=== PATIENT | female | born 1970 | race Caucasian/White ===

== ENCOUNTER 2017-05-07 18:17 | Inpatient (IN) | payer MEDICARE, MEDICAID ==
[2017-05-07 18:59] VITALS: BMI 31.9
[2017-05-07] MEDS ORDERED: MAG HYDROX/AL HYDROX/SIMETH 30 ML CUP PO PRN (19:10)
[2017-05-07] MEDS ORDERED: MAGNESIUM HYDROXIDE 2,400 MG/10 ML CUP PO PRN (19:10)
[2017-05-07] MEDS: GABAPENTIN 400 MG CAP PO SCH (21:49)
[2017-05-07] MEDS: NICOTINE 14MG/24HR PATCH TRANSDERM SCH (21:49)
[2017-05-07] MEDS: cloNIDine HCL 0.1 MG TAB PO SCH (21:49)
[2017-05-08] MEDS: NICOTINE 14MG/24HR PATCH TRANSDERM SCH (09:04)
[2017-05-08] MEDS: cloNIDine HCL 0.1 MG TAB PO SCH ×2 (09:04→20:46)
[2017-05-08] MEDS: GABAPENTIN 400 MG CAP PO SCH ×3 (09:04→20:46)
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
[2017-05-08] MEDS: DULoxetine HCL 30 MG CAPSULE.DR PO SCH (12:29)
[2017-05-08] MEDS ORDERED: ALBUTEROL INHALER 60 PUFF/8 GM INHALER INHALATION PRN (13:18)
[2017-05-08] MEDS ORDERED: MINERAL OIL-WHITE PETROLATUM 120 GM JAR TOPICAL PRN (13:32)
--- NOTE | 2017-05-08 18:08 | CONS ---
CONSULTATION REASON FOR CONSULTATION: Advice regarding hypertension and other multiple medical issues, requested by Psychiatry. HISTORY OF PRESENT ILLNESS: This 46-year-old woman with a past history of hypertension, syndrome, cholecystectomy, history of nicotine dependence, being followed by Dr. Aguilar in the outpatient setting, was admitted for psychiatric evaluation. There is no history of fevers or rigors. No history of headache or loss of consciousness. Patient complains of cough. The patient apparently has COPD, not taking bronchodilators at home. PAST MEDICAL HISTORY: History of COPD, hypertension, syndrome, cholecystectomy, nicotine dependence, history of THC. MEDICATIONS: 1. Ambien 5 mg p.o. at bedtime. 2. Norvasc 5 mg p.o. daily. 3. Catapres 0.1 p.o. b.i.d. 4. Zanaflex 4 mg p.o. daily. 5. Gabapentin 10 mg t.i.d. ALLERGIES: PENICILLIN. FAMILY HISTORY: History of coronary artery disease and bipolar in the family. SOCIAL HISTORY: History of smoking, THC. REVIEW OF SYSTEMS: ENT: No diminished hearing or vision. CARDIOVASCULAR: No angina or palpitations. RESPIRATORY: As mentioned earlier. GI: No nausea. : No dysuria. NERVOUS SYSTEM: No numbness or weakness. ALLERGY: No asthma or hayfever. MUSCULOSKELETAL: As mentioned earlier. DERMATOLOGY: As mentioned. ENDOCRINE: No anemia. No history of diabetes or hypothyroidism. CONSTITUTIONAL: As mentioned. RHEUMATOLOGY: As mentioned. PSYCHIATRY: As mentioned. PHYSICAL EXAM: Alert, oriented x3. Pulse 54, blood pressure 140/97, respirations 18, temperature 97.8, pulse ox normal. HEENT: Conjunctivae normal. Oral mucosa moist. NECK: No jugular venous distention. No lymph node enlargement. CARDIOVASCULAR: S1 and S2. LUNGS: Breath sounds diminished in the bases. Few rhonchi and crackles. Expiratory wheezing also. ABDOMEN: Soft, nontender. LEGS: No edema. NERVOUS SYSTEM: Higher functions as mentioned earlier. Moves all 4 limbs. LYMPHATICS: No lymph nodes palpable in the neck, axillae or groin. SKIN: No ulcer, rash or bleeding. Bilateral hand eczema. LABS: WBC 3.4. ASSESSMENT: 1. Chronic obstructive pulmonary disease. 2. History of nicotine dependence. 3. Major depression. 4. Degenerative joint disease and back pain. 5. Bilateral hand eczema. 6. History of syndrome. 7. History of hypertension. 8. History of cholecystectomy. 9. History of THC. 10.History of nicotine dependence. RECOMMENDATIONS AND DISCUSSION: In this 46-year-old woman who presented with multiple complex medical issues, will monitor the patient closely. Continue the current management. I recommend resume home medications. Smoking cessation advised. Otherwise would also recommend followup closely and a course of bronchodilators. Will follow the patient closely. The patient may be asked to follow up with primary physician closely. Thank you for asking us to participate in the care of this patient. MMODL / IJN: [id number] / MTDD
[2017-05-08] MEDS: ALBUTEROL INHALER 60 PUFF/8 GM INHALER INHALATION SCH (21:06)
[2017-05-09] MEDS: ALBUTEROL INHALER 60 PUFF/8 GM INHALER INHALATION SCH ×3 (08:13→20:47)
[2017-05-09] MEDS: amLODIPine 5 MG TAB PO SCH (08:50)
[2017-05-09] MEDS: cloNIDine HCL 0.1 MG TAB PO SCH ×2 (08:50→21:05)
[2017-05-09] MEDS: GABAPENTIN 400 MG CAP PO SCH ×3 (08:50→21:05)
[2017-05-09] MEDS: NICOTINE 14MG/24HR PATCH TRANSDERM SCH (08:50)
[2017-05-09] MEDS: DULoxetine HCL 30 MG CAPSULE.DR PO SCH (08:50)
--- NOTE | 2017-05-09 09:49 | P.PN ---
Progress Note - Text Interval history: The patient is found at the front office representative she follows me to an interview room. She reports that her anxiety seemed to decrease as soon as she started the Cymbalta. She continues to process feelings of shame and guilt regarding her suicide attempt but especially with her children in the home. She reports she is attending group. She has no questions or concerns regarding her medication. Appetite is reported as stable. She states sleep was interrupted due to disturbances on the mental health unit last evening. Mental status exam: The patient is alert she seated calmly she is dressed in her own clothing hygiene grooming adequate. Eye contact is appropriate speech is fluent spontaneous nonpressured. She endorses a continued depressed mood with anxiety she still harbor some hopelessness thinking but in terms of suicidal ideation she feels safe here in the hospital. She is reporting no homicidal ideation. There is no report or evidence of auditory or visual hallucinations or specific delusions. She does not appear hypomanic or manic. Insight and judgment beginning to improve. She demonstrates no verbal or physical aggressiveness she demonstrates no abnormal involuntary movements. Plan: The patient will continue on the Cymbalta we will titrate the dose to 60 mg tomorrow. We will continue to monitor her for safety and encourage her participation in the milieu.
[2017-05-09] MEDS: TRIAMCINOLONE 0.1% CREAM 80 GM TUBE TOPICAL SCH ×2 (12:14→21:08)
[2017-05-09] MEDS: ACETAMINOPHEN TAB 325 MG TAB PO PRN ×2 (16:34→21:05)
[2017-05-09] MEDS ORDERED: MELATONIN 3 MG TABLET PO STA (23:51)
[2017-05-10] MEDS: TRIAMCINOLONE 0.1% CREAM 80 GM TUBE TOPICAL SCH ×2 (08:34→20:52)
[2017-05-10] MEDS: cloNIDine HCL 0.1 MG TAB PO SCH ×2 (08:34→20:51)
[2017-05-10] MEDS: DULoxetine HCL 60 MG CAPSULE.DR PO SCH (08:34)
[2017-05-10] MEDS: GABAPENTIN 400 MG CAP PO SCH ×3 (08:34→20:52)
[2017-05-10] MEDS: amLODIPine 5 MG TAB PO SCH (08:34)
[2017-05-10] MEDS: NICOTINE 14MG/24HR PATCH TRANSDERM SCH (08:35)
[2017-05-10] MEDS: ALBUTEROL INHALER 60 PUFF/8 GM INHALER INHALATION SCH ×3 (09:19→21:46)
[2017-05-10] MEDS ORDERED: amLODIPine 5 MG TAB PO STA (11:47)
--- NOTE | 2017-05-10 16:22 | P.PN ---
Subjective Progress Note Date: 05/10/17 Interval history: The patient was seen ,she endorses:initial and middle insomnia ,had Melatonin last night and slept for 2 hours ,denies any racing thoughts ,endorses lot of guilt and remorse regarding her suicidal attempt ,she denies any side-effect from psychotropic medications,participating in most of groups,denies any hopeless or helpless feeling Mental status exam: The patient is dressed in her own clothing hygiene grooming adequate. Eye contact is appropriate speech is fluent spontaneous ,she denies any suicidal ideation ,struggling with lot of guilt . She is reporting no homicidal ideation. There is no report or evidence of auditory or visual hallucinations or specific delusions. Insight and judgment beginning to improve. She demonstrates no verbal or physical aggressiveness she demonstrates no abnormal involuntary movements. Plan: The patient will continue on current psychotropic medications ,we will add Vistaril for insomnia. We will continue to monitor her for safety and encourage her participation in the milieu. Blood pressure is high ,will monitor vitals Objective - Vital Signs Vital signs: Vital Signs Temp 98.3 F 05/10/17 08:35 Pulse 68 05/10/17 13:05 Resp 16 05/10/17 13:05 BP 150/80 05/10/17 13:05 Pulse Ox
[2017-05-10] MEDS: hydrOXYzine PAMOATE 25 MG CAP PO SCH (20:51)
[2017-05-11] MEDS: amLODIPine 10 MG TAB PO SCH (08:48)
[2017-05-11] MEDS: cloNIDine HCL 0.1 MG TAB PO SCH ×2 (08:48→21:01)
[2017-05-11] MEDS: NICOTINE 14MG/24HR PATCH TRANSDERM SCH (08:48)
[2017-05-11] MEDS: TRIAMCINOLONE 0.1% CREAM 80 GM TUBE TOPICAL SCH ×2 (08:49→21:01)
[2017-05-11] MEDS: DULoxetine HCL 60 MG CAPSULE.DR PO SCH (08:49)
[2017-05-11] MEDS: ACETAMINOPHEN TAB 325 MG TAB PO PRN (08:49)
[2017-05-11] MEDS: GABAPENTIN 400 MG CAP PO SCH ×3 (08:49→21:01)
[2017-05-11] MEDS: ALBUTEROL INHALER 60 PUFF/8 GM INHALER INHALATION SCH ×4 (10:29→21:43)
--- NOTE | 2017-05-11 14:28 | P.PN ---
Progress Note - Text Progress Note Date: 05/11/17 Interval history: The patient was seen in the office ,slept better with Vistaril ,talked about ongoing stressor ,patient stated that she was isolating herself for 5 months and did not ask for help at that time but now she is able to identify signs of depression ,feeling better after her 16 years old son came yesterday and he was supportive to her,she denies any side-effect from psychotropic medications,participating in most of groups,denies any hopeless or helpless feeling Mental status exam: The patient is dressed in her own clothing hygiene grooming adequate. Eye contact is appropriate speech is fluent spontaneous ,she denies any suicidal ideation.. She is reporting no homicidal ideation. There is no report or evidence of auditory or visual hallucinations or specific delusions. Insight and judgment are better She demonstrates no verbal or physical aggressiveness she demonstrates no abnormal involuntary movements. Plan: The patient will continue on current psychotropic medications . We will continue to monitor her for safety and encourage her participation in the milieu. SW to assist in after care
[2017-05-11] MEDS: hydrOXYzine PAMOATE 25 MG CAP PO SCH (21:01)
[2017-05-12 06:40] VITALS: RESP 16; TEMP 98.5
[2017-05-12] MEDS: GABAPENTIN 400 MG CAP PO SCH (08:54)
[2017-05-12] MEDS: NICOTINE 14MG/24HR PATCH TRANSDERM SCH (08:54)
[2017-05-12] MEDS: DULoxetine HCL 60 MG CAPSULE.DR PO SCH (08:55)
[2017-05-12] MEDS: cloNIDine HCL 0.1 MG TAB PO SCH (08:55)
[2017-05-12] MEDS: amLODIPine 10 MG TAB PO SCH (08:55)
[2017-05-12] MEDS: ALBUTEROL INHALER 60 PUFF/8 GM INHALER INHALATION SCH (09:25)
--- NOTE | 2017-05-12 09:43 | P.DS ---
Providers Date of admission: 05/07/17 18:17 Expected date of discharge: 05/12/17 Attending physician: Milton Msoer Consults: 05/07/17 19:10 Consult Physician Routine Consulting Provider: Rosa Murdock Consult Reason/Comments: H and P Do you want consulting provider notified?: Yes Primary care physician: Stated None - Discharge Diagnosis(es) (1) Major depressive disorder, recurrent severe without psychotic features Current Visit: Yes Status: Acute Priority: High (2) Chronic post-traumatic stress disorder (PTSD) Current Visit: Yes Status: Acute Priority: Medium (3) Alcohol use disorder, mild, in sustained remission Current Visit: Yes Status: Acute Priority: Low Hospital Course: Brief summary of admission note: This patient is a 46-year-old single female who was admitted to the mental health unit as a transfer from [facility] after suicide attempt with medication overdose. The patient had overdosed with cough syrup along with Zanaflex tablets. She did this in her own home. She reported feeling depressed for an extended period of time and stated that the suicide attempt was impulsive. She described having poor sleep low energy feeling hopeless and tearful. For full details please refer to my psychiatric evaluation. Summary of hospital course: The patient was admitted to the mental health unit she signed in voluntarily. We reviewed her presenting symptoms and medication options. We decided to initiate Cymbalta to treat depressive and anxiety symptoms and possibly physical pain. The patient was seen by internal medicine for routine history and physical exam. Her Norvasc was increased during the hospitalization to better control blood pressure. She was seen by social work to complete a psychosocial assessment. We monitor the patient for safety she was encouraged to participate in the milieu. She demonstrated no agitated behavior. During the course of the hospitalization she reported a progressive improvement of symptoms while here. She is scheduled to participate in a support meeting this morning. Mental status exam: The patient is alert she is dressed in her own clothing hygiene grooming is adequate. Speech is fluent spontaneous nonpressured. She reports her mood is good she is reporting no suicidal or homicidal ideation intent or plan. She is endorsing no auditory or visual hallucinations or specific delusions. There is no evidence of psychosis observed. Thought process is linear and goal directed. She demonstrates no tangential thinking loose associations or flight of ideas. She demonstrates no abnormal involuntary movements. Insight and judgment grossly intact. She is oriented to person place and date. She demonstrates future oriented thinking. She describes feeling supported by people in her life at this time and a willingness to work on coping skill development. Impressions 1. Major depressive disorder recurrent severe without psychosis, chronic posttraumatic stress disorder, alcohol use disorder in full sustained remission , rule out cannabis use disorder 2. Cluster B traits 3. Degenerative disc disease, disc herniations, sciatic nerve involvement, hypertension, COPD Plan: The patient will be discharged mental health unit today to return home. She will continue on Cymbalta 60 mg daily. Social work will arrange for outpatient mental health follow-up. She will participate in a support meeting involving her close friend prior to discharge. There is no imminent safety risk she is appropriate for continued care as an outpatient. She is advised to meet with her primary care physician in the next 1-2 weeks to review her blood pressure. She is instructed to return to the hospital with any acute safety concerns. She plans on continuing use of marijuana and does not wish to participate in any treatment to abstain from it. Patient Condition at Discharge: Stable Plan - Discharge Summary Discharge Rx Participant: No New Discharge Prescriptions: New amLODIPine [Norvasc] 10 mg PO DAILY #30 tab DULoxetine HCL [Cymbalta] 60 mg PO DAILY #30 capsule. Nicotine 14Mg/24Hr Patch [Habitrol] 1 patch TRANSDERM DAILY #12 patch Continue cloNIDine HCL [Catapres] 0.1 mg PO BID Gabapentin 800 mg PO TID Discontinued amLODIPine [Norvasc] 5 mg PO DAILY tiZANidine [Zanaflex] 4 mg PO TID Zolpidem [Ambien] 5 mg PO HS Discharge Medication List Gabapentin 800 mg PO TID 05/07/17 [History] cloNIDine HCL [Catapres] 0.1 mg PO BID 05/07/17 [History] DULoxetine HCL [Cymbalta] 60 mg PO DAILY #30 capsule. 05/12/17 [Rx] Nicotine 14Mg/24Hr Patch [Habitrol] 1 patch TRANSDERM DAILY #12 patch 05/12/17 [ Rx] amLODIPine [Norvasc] 10 mg PO DAILY #30 tab 05/12/17 [Rx]
[2017-05-12] MEDS: TRIAMCINOLONE 0.1% CREAM 80 GM TUBE TOPICAL SCH (10:07)
[2017-05-12 10:42] VITALS: BP 156/82; PULSE 66
== END 2017-05-12 13:14 | disposition home or self-care (01) | DRG 885 ==
LOC: 3MHU 18:17
PROVIDERS: ADMIT Psychiatry & Neurology Psychiatry; ATTEND Psychiatry & Neurology Psychiatry
DX: F33.2 Major depressive disorder, recurrent severe without psychotic features (principal); F10.11 Alcohol abuse, in remission; F12.90 Cannabis use, unspecified, uncomplicated; F41.0 Panic disorder [episodic paroxysmal anxiety]; F43.12 Post-traumatic stress disorder, chronic; G47.00 Insomnia, unspecified; I10 Essential (primary) hypertension; J44.9 Chronic obstructive pulmonary disease, unspecified; L30.9 Dermatitis, unspecified; Z82.49 Family history of ischemic heart disease and other diseases of the circulatory system; Z87.891 Personal history of nicotine dependence; Z90.49 Acquired absence of other specified parts of digestive tract; Z91.5 Personal history of self-harm; Z88.0 Allergy status to penicillin; M19.90 Unspecified osteoarthritis, unspecified site; Z79.899 Other long term (current) drug therapy
CPT/HCPCS: 84443; 94640

== ENCOUNTER → 2018-07-28 | Outpatient (CLI) | payer MEDICARE, OTHER ==
--- NOTE | 2018-07-28 11:17 | XR ---
KUB HISTORY: Calculus of ureter and kidney Frontal view of the kidneys ureters and bladder on 2 images No comparisons Surgical clips are present in the right upper quadrant. There is a double-J stent on the right. Oval calcification superimposed over the right L3 transverse process measures approximately 9 mm in close proximity to the proximal double-J stent. Multiple calcifications present within the pelvis. Degenera tive disc changes are present in the visualized spine. IMPRESSION: Urology follow-up
== END | disposition home or self-care (01) ==
LOC: RADXRMAIN 09:07
PROVIDERS: ATTEND Urology
DX: N20.2 Calculus of kidney with calculus of ureter (principal)
CPT/HCPCS: 74018

== ENCOUNTER 2018-08-05 10:40 | Day surgery (SDC) | payer MEDICARE, OTHER ==
[2018-08-04 09:16] VITALS: BMI 30.9
--- NOTE | 2018-08-04 09:40 | P.GSHP ---
History of Present Illness H&P Date: 08/01/18 Chief Complaint: Right flank pain The patient is a 48-year-old white female with a history of urolithiasis. She was recently hospitalized with right renal colic, and a computed tomography scan showed right hydroureteronephrosis due to a 7 mm right proximal ureteral calculus. Urine cultures at that time showed E. coli, and she underwent cystoscopy with right ureteral stent insertion. The UTI has resolved, and she underwent right ESWL. However, the calculus failed to fragment. She was offered the options of repeat ESWL versus ureteroscopic removal of the calculus, and she has elected to undergo the latter. - Constitutional Constitutional: Reports fever - Gastrointestinal Gastrointestinal: Reports nausea, Reports vomiting - Genitourinary (Female) Genitourinary: Reports flank pain, Reports kidney stones Past Medical History Past Medical History: Asthma, Hypertension Additional Past Medical History / Comment(s): Carpal Tunnel, Neuropathy Pain, Kidney Stone History of Any Multi-Drug Resistant Organisms: None Reported Past Surgical History: Cholecystectomy Additional Past Surgical History / Comment(s): Right ureteral stent insertion, right ESWL, right knee cartilage shaved. Past Anesthesia/Blood Transfusion Reactions: No Reported Reaction Past Psychological History: Anxiety Smoking Status: Current every day smoker - Past Family History Mother Family Medical History: Coronary Artery Disease (CAD) Additional Family Medical History / Comment(s): bipolar Father Family Medical History: Cancer Medications and Allergies Home Medications Medication Instructions Recorded Confirmed Type Gabapentin 800 mg PO TID 05/07/17 05/07/17 History cloNIDine HCL [Catapres] 0.1 mg PO BID 05/07/17 05/07/17 History DULoxetine HCL [Cymbalta] 60 mg PO DAILY #30 capsule. 05/12/17 Rx Nicotine 14Mg/24Hr Patch [Habitrol] 1 patch TRANSDERM DAILY #12 patch 05/12/17 Rx amLODIPine [Norvasc] 10 mg PO DAILY #30 tab 05/12/17 Rx Allergies Allergy/AdvReac Type Severity Reaction Status Date / Time Penicillins Allergy Anaphylaxis Verified 05/10/17 16:16 Surgical - Exam - General well developed, well nourished, no distress - Respiratory normal respiratory effort, clear to auscultation - Cardiovascular Rhythm: regular Abnormal Heart Sounds: no systolic murmur, no diastolic murmur, no rub, no S3 Gallop, no S4 Gallop, no click, no other - Abdomen Abdomen: soft, non tender, no guarding, no rigid, no rebound Assessment and Plan (1) Calculus of ureter Status: Acute Code(s): N20.1 - CALCULUS OF URETER SNOMED Code(s): 38172278 Plan: Cystoscopy, right ureteral stent removal, right ureteroscopy with Holmium laser lithotripsy. The procedure has been reviewed in detail with the patient. Potential risks were discussed, which include anesthesia, bleeding, infection, ureteral injury, and incomplete fragmentation of the calculus. She understands the possible need for stent replacement.
[~2018-08-05 10:40] MED LIST: DEXAMETHASONE SOD PHOSPHATE 10 MG/ML 1 ML VIAL IV ONE; LACTATED RINGERS 1,000 ML IV SCH; LEVOFLOXACIN 500MG-D5W PMX 500 MG in DEXTROSE/WATER 1 100ML.BAG IVPB ONE; LIDOCAINE 1% 20 ML VIAL (10MG/ML) FOR IV START INTRADERMA PRN; MIDAZOLAM 2 MG/2 ML VIAL IV PRN
--- NOTE | 2018-08-05 11:31 | XR ---
KUB HISTORY: Right renal calculus, stent, lithotripsy KUB correlated to prior exam 07/28/2018 Stent and right-sided proximal ureteral calcification thought to be stable. There is overlying bowel gas which may obscure detail. Surgical clips in the right upper quadrant again noted. Multiple calcif ications are present within the pelvis. IMPRESSION: Findings are thought to be stable.
[2018-08-05] MEDS ORDERED: ONDANSETRON 4 MG/2 ML VIAL IVP ONE (11:38)
[2018-08-05] MEDS ORDERED: SUCCINYLCHOLINE CHLORIDE 100 MG/5 ML SYR IV ONE (12:07)
[2018-08-05] MEDS ORDERED: KETOROLAC 30 MG/ML 1 ML VIAL ONE (12:07)
[2018-08-05] MEDS ORDERED: LIDOCAINE 1% INJ 10MG/ML (20 ML MDV) ONE (12:07)
[2018-08-05] MEDS ORDERED: PROPOFOL 10 MG/ML 20 ML VIAL IV ONE (12:07)
[2018-08-05] MEDS ORDERED: MIDAZOLAM 2 MG/2 ML VIAL ONE (12:07)
[2018-08-05] MEDS ORDERED: fentaNYL (PF) 50 MCG/ML 2 ML AMP ONE (12:07)
--- NOTE | 2018-08-05 13:40 | P.OP ---
Date of Procedure: 08/05/18 Preoperative Diagnosis: Right ureteral calculus Postoperative Diagnosis: Same Procedure(s) Performed: Cystoscopy, right ureteral stent removal, right ureteroscopy with Holmium laser lithotripsy Anesthesia: NEALA Surgeon: Joseph Piña Estimated Blood Loss (ml): 0 IV fluids (ml): 750 Pathology: none sent Condition: stable Disposition: PACU Indications for Procedure: The patient is a 48-year-old white female with a history of urolithiasis. She was recently hospitalized with right renal colic, and a computed tomography scan showed right hydroureteronephrosis due to a 7 mm right proximal ureteral calculus. Urine cultures at that time showed E. coli, and she underwent cystoscopy with right ureteral stent insertion. The UTI has resolved, and she underwent right ESWL. However, the calculus failed to fragment. She was offered the options of repeat ESWL versus ureteroscopic removal of the calculus, and she has elected to undergo the latter. Operative Findings: Right proximal ureteral calculus, fragmented completely. Description of Procedure: The patient was taken to the operating room and placed in the dorsolithotomy position, with legs supported in Anshu stirrups. The external genitalia was prepped and draped sterilely. The 30 lens was used to introduce the 22-[place]oc[place] Stortz cystoscopic sheath through the urethra and into the bladder under direct vision. The bladder was examined in its entirety. No tumors or foreign bodies were seen. Grasping forceps were used to grasp the distal end of the right ureteral stent, which was removed along with the cystoscope. The mini flexible ureteroscope was advanced into the bladder, and the right ureteral orifice was cannulated. The ureteroscope was slowly advanced under direct vision, up to the proximal ureteral calculus. The 200 micron Holmium laser probe was passed through the ureteroscope, and lithotripsy was performed. A dusting technique was utilized. The stone refluxed into an upper pole calyx. Lithotripsy was continued using a combination of dusting and popcorning techniques. This was continued until all calculus fragments were no larger than the size of the laser fiber tip. The ureteroscope was slowly withdrawn under direct vision. There was no evidence of ureteral trauma. The patient tolerated the procedure well and was taken to the recovery room in stable condition. [facility] [place] Procedure Acuity: Elective Stone Size and Location: 7 mm right proximal ureteral calculus Ureteral Dilation: No Ureteral Access Sheath Used: No Stone Sent for Analysis: No All Stones/Fragments Were Removed with a Basket: No Complications: No Preoperative Antibiotics Given: Yes Stent Placed: No If Stent Placed, Was String Left Attached: N/A If Stent Placed, When is it to be Removed: N/A Discharge Medications: None
[2018-08-05] MEDS: fentaNYL (PF) 50 MCG/ML 2 ML AMP IV PRN ×2 (13:48→14:00)
[2018-08-05 14:03] VITALS: RESP 16; TEMP 97
[2018-08-05] MEDS: HYDROmorphone 1 MG/ML 1 ML SYRINGE IVP ONE ×4 (14:09→14:30)
[2018-08-05] MEDS ORDERED: LACTATED RINGERS 1,000 ML IV ONE ×2 (14:11)
--- NOTE | 2018-08-05 14:31 | FL ---
EXAMINATION TYPE: FL guidance operating room DATE OF EXAM: 08/05/2018 HISTORY: Flouroscopy time 3 seconds of fluoroscopy provided. IMPRESSION: 1. Fluoroscopy time.
[2018-08-05 15:07] VITALS: BP 138/68; PULSE 59
== END 2018-08-05 15:21 | disposition home or self-care (01) ==
LOC: OR 10:40
PROVIDERS: ATTEND Urology
DX: N20.1 Calculus of ureter (principal); Z46.6 Encounter for fitting and adjustment of urinary device; I10 Essential (primary) hypertension; J45.909 Unspecified asthma, uncomplicated; Z90.49 Acquired absence of other specified parts of digestive tract; Z88.0 Allergy status to penicillin; Z87.440 Personal history of urinary (tract) infections; Z79.899 Other long term (current) drug therapy
CPT/HCPCS: 81025; 74018; 52353; J2250; J1100; J2405; J1956; J2001; J3010; J1885; J1170; J0330; J2704

== ENCOUNTER 2019-04-16 13:55 | Emergency (ER) | payer MEDICARE, OTHER ==
[2019-04-16 14:12] VITALS: RESP 18
[2019-04-16 15:12] LABS: Basophils # (A) 0.2 k/uL (0-0.2); Basophils % (A) 2 %; Eosinophils # (A) 0.2 k/uL (0-0.7); Eosinophils % (A) 2 %; HCT 41.6 % (34.0-46.0); HGB 13.2 gm/dL (11.4-16.0); Lymphocytes # (A) 1.7 k/uL (1.0-4.8); Lymphocytes % (A) 13 %; MCH 28.7 pg (25.0-35.0); MCHC 31.6 g/dL (31.0-37.0); MCV 90.8 fL (80.0-100.0); Mean Platelet Volume 7.4; Monocytes # (A) 0.7 k/uL (0-1.0); Monocytes % (A) 5 %; Neutrophils # (A) 10.8 k/uL (1.3-7.7); Neutrophils % (A) 78 %; Platelet Count 462 k/uL (150-450); RBC 4.58 m/uL (3.80-5.40); RDW 14.6 % (11.5-15.5); WBC 13.9 k/uL (3.8-10.6)
[2019-04-16 15:19] LABS: ALT 9 U/L (4-34); AST 19 U/L (14-36); African American GFR (CKD) >90 (>60 ml/min/1.73 sqM); Albumin 4.1 g/dL (3.5-5.0); Alkaline Phosphatase 66 U/L (38-126); Anion Gap 10 mmol/L; Blood Urea Nitrogen 9 mg/dL (7-17); Calcium 9.4 mg/dL (8.4-10.2); Carbon Dioxide 23 mmol/L (22-30); Chloride 105 mmol/L (98-107); Glucose 121 mg/dL (74-99); Non-African American GFR(CKD) >90 (>60 ml/min/1.73 sqM); Sodium 138 mmol/L (137-145); Total Bilirubin 0.7 mg/dL (0.2-1.3); Total Protein 7.2 g/dL (6.3-8.2)
[2019-04-16 15:27] LABS: Potassium 4.4 mmol/L (3.5-5.1)
[2019-04-16] MEDS ORDERED: HYDROcodone/APAP 5-325MG 1 EACH TAB PO STA (15:48)
--- NOTE | 2019-04-16 15:54 | ED ---
Skin/Abscess/FB HPI - General Chief complaint: Skin/Abscess/Foreign Body Stated complaint: Rt breast Pain/cyst Time Seen by Provider: 04/16/19 14:14 Source: patient Mode of arrival: ambulatory Limitations: no limitations - History of Present Illness Initial comments: Patient is a 48-year-old female presenting to emergency Department with a chief complaint of an abscess in the right breast. Patient states she has a history of patient states this assess started approximately 10 days ago. 7 days ago patient went to another emergency department where she was started on clindamycin. Patient states that she took 7 days worth of clindamycin and yesterday went to [facility] emergency department where a CAT scan was obtained and patient was given IV Rocephin. Patient states there is no improvement in the abscess and continues to be very tender. She states the abscess is located near the areola and the surrounding erythema continues to expand. She denies any fevers but does report chills and night sweats. Denies any nausea vomiting diarrhea. - Related Data Home Medications Medication Instructions Recorded Confirmed cloNIDine HCL [Catapres] 0.1 mg PO BID 05/07/17 08/05/18 Previous Rx's Medication Instructions Recorded amLODIPine [Norvasc] 10 mg PO DAILY #30 tab 05/12/17 Sulfamethox-Tmp 800-160Mg [Bactrim 1 each PO Q12HR #20 tab 04/16/19 Ds] Allergies Allergy/AdvReac Type Severity Reaction Status Date / Time Penicillins Allergy Anaphylaxis Verified 04/16/19 14:12 Review of Systems ROS Statement: Those systems with pertinent positive or pertinent negative responses have been documented in the HPI. ROS Other: All systems not noted in ROS Statement are negative. Past Medical History Past Medical History: Asthma, Hypertension Additional Past Medical History / Comment(s): Carpal Tunnel, Neuropathy Pain, Kidney Stone History of Any Multi-Drug Resistant Organisms: None Reported Past Surgical History: Cholecystectomy Additional Past Surgical History / Comment(s): Right ureteral stent insertion, right ESWL, right knee cartilage shaved. Past Anesthesia/Blood Transfusion Reactions: No Reported Reaction Additional Past Anesthesia/Blood Transfusion Reaction / Comment(s): ASPIRATED IN 2000 DURING GALLBLADDER SURGERY Past Psychological History: Anxiety Smoking Status: Current every day smoker - Past Family History Mother Family Medical History: Coronary Artery Disease (CAD) Additional Family Medical History / Comment(s): bipolar Father Family Medical History: Cancer General Exam Limitations: no limitations General appearance: alert, in no apparent distress, obese Head exam: Present: atraumatic, normocephalic, normal inspection Eye exam: Present: normal appearance Pupils: Present: normal accommodation ENT exam: Present: normal exam Neck exam: Present: normal inspection, full ROM Respiratory exam: Present: normal lung sounds bilaterally, chest wall tenderness, other (Erythematous lesion on the right breast located between 9:00 and 12:00 on the areola. Swelling approximately 5 cm in diameter. Surrounding erythema moving proximally throughout the whole breast. Some necrotic tissue superimposed on the swelling. No active discharge. Very tender.) Cardiovascular Exam: Present: regular rate, normal rhythm, normal heart sounds Extremities exam: Present: normal inspection, full ROM Back exam: Present: normal inspection, full ROM Neurological exam: Present: alert, oriented X3 Psychiatric exam: Present: normal affect, normal mood Skin exam: Present: warm, dry, intact, normal color Course Vital Signs 04/16/19 04/16/19 14:09 18:04 Temperature 98.4 F 98.0 F Pulse Rate 76 75 Respiratory 18 18 Rate Blood Pressure 129/81 128/84 O2 Sat by Pulse 97 98 Oximetry Medical Decision Making - Medical Decision Making Patient is a 48-year-old female presenting to the emergency department with a chief complaint with a breast abscess. On exam patient hsa Erythematous lesion on the right breast located between 9:00 and 12:00 on the areola. Swelling approximately 5 cm in diameter. Surrounding erythema moving proximally throughout the whole breast. Some necrotic tissue superimposed on the swelling. No active discharge. Very tender. Ultrasound of her right breast performed showing. The technical aid called and informed me the radiologist was suggests a breast biopsy. The radiologist also reported a 6 cm vascularized mass located in the right breast. CBC does indicate leukocytosis. examine the patient and drained the abscess. He suggested antibiotics and warm compresses. Patient discharged with Bactrim. Patient advised to follow-up with primary care. She'll return partners were thoroughly discussed the patient was understanding and agreeable. Case discussed with physician. - Lab Data Result diagrams: 04/16/19 15:00 04/16/19 15:00 Lab Results 04/16/19 04/16/19 04/16/19 Range/Units 15:00 15:00 15:00 WBC 13.9 H (3.8-10.6) k/uL RBC 4.58 (3.80-5.40) m/uL Hgb 13.2 (11.4-16.0) gm/dL Hct 41.6 (34.0-46.0) % MCV 90.8 (80.0-100.0) fL MCH 28.7 (25.0-35.0) pg MCHC 31.6 (31.0-37.0) g/dL RDW 14.6 (11.5-15.5) % Plt Count 462 H (150-450) k/uL Neutrophils % 78 % Lymphocytes % 13 % Monocytes % 5 % Eosinophils % 2 % Basophils % 2 % Neutrophils # 10.8 H (1.3-7.7) k/uL Lymphocytes # 1.7 (1.0-4.8) k/uL Monocytes # 0.7 (0-1.0) k/uL Eosinophils # 0.2 (0-0.7) k/uL Basophils # 0.2 (0-0.2) k/uL Sodium 138 (137-145) mmol/L Potassium 4.4 (3.5-5.1) mmol/L Chloride 105 (98-107) mmol/L Carbon Dioxide 23 (22-30) mmol/L Anion Gap 10 mmol/L BUN 9 (7-17) mg/dL Creatinine 0.73 (0.52-1.04) mg/dL Est GFR (CKD-EPI)AfAm >90 (>60 ml/min/1.73 sqM) Est GFR (CKD-EPI)NonAf >90 (>60 ml/min/1.73 sqM) Glucose 121 H (74-99) mg/dL Plasma Lactic Acid Benedict 1.5 (0.7-2.0) mmol/L Calcium 9.4 (8.4-10.2) mg/dL Total Bilirubin 0.7 (0.2-1.3) mg/dL AST 19 (14-36) U/L ALT 9 (4-34) U/L Alkaline Phosphatase 66 (38-126) U/L Total Protein 7.2 (6.3-8.2) g/dL Albumin 4.1 (3.5-5.0) g/dL Disposition Clinical Impression: Abscess of breast, right Disposition: HOME SELF-CARE Condition: Stable Instructions (If sedation given, give patient instructions): Abscess Incision and Drainage (DC) Additional Instructions: Apply warm compresses. Take prescribed medication as directed. Return to emergency department if symptoms worsen. Prescriptions: Sulfamethox-Tmp 800-160Mg [Bactrim Ds] 1 each PO Q12HR #20 tab Is patient prescribed a controlled substance at d/c from ED?: No Referrals: Pepito Aguilar MD [Primary Care Provider] - 1-2 days Time of Disposition: 17:48
[2019-04-16] MEDS ORDERED: LIDOCAINE 1%-EPI 1:100,000 20 ML VIAL SQ STA (17:10)
[2019-04-16 18:05] VITALS: BP 128/84; PULSE 75; TEMP 98
--- NOTE | 2019-04-19 01:42 | CDI ---
Dear Wil Chung PA-C: Please do addendum procedure note of breast abscess drainage, whether it was performed incision and drainage or needle aspiration. Thank You, Belinda Linton, [employer]. If you have any questions, please contact [employer] at [phone]. [facility]
--- NOTE | 2019-04-19 08:05 | USB ---
Reason for exam: clinical finding. History: Excisional biopsy of the right breast, 2010. US Breast RT Right complete breast ultrasound includes all four quadrants, the retroareolar region and axilla. Finding demonstrates a 6.1 x 2.6 x 5.0cm solid, hypervascular mass with solid components at the posterior nipple, a 1.7 x 1.3 x 1.7cm hypoechoic, vascular lymph node at the axilla and multiple enlarged axillary nodes. ASSESSMENT: Highly suggestive of malignancy, BI-RAD 5 RECOMMENDATION: Ultrasound core biopsy of the right breast. (and axilla)
--- NOTE | 2019-05-01 16:37 | ED ---
Medical Decision Making - Medical Decision Making 48 female the ER with significant abscess, breast abscess this is documentation of a needle aspiration - Lab Data Result diagrams: 04/16/19 15:00 04/16/19 15:00 Lab Results 04/16/19 04/16/19 04/16/19 Range/Units 15:00 15:00 15:00 WBC 13.9 H (3.8-10.6) k/uL RBC 4.58 (3.80-5.40) m/uL Hgb 13.2 (11.4-16.0) gm/dL Hct 41.6 (34.0-46.0) % MCV 90.8 (80.0-100.0) fL MCH 28.7 (25.0-35.0) pg MCHC 31.6 (31.0-37.0) g/dL RDW 14.6 (11.5-15.5) % Plt Count 462 H (150-450) k/uL Neutrophils % 78 % Lymphocytes % 13 % Monocytes % 5 % Eosinophils % 2 % Basophils % 2 % Neutrophils # 10.8 H (1.3-7.7) k/uL Lymphocytes # 1.7 (1.0-4.8) k/uL Monocytes # 0.7 (0-1.0) k/uL Eosinophils # 0.2 (0-0.7) k/uL Basophils # 0.2 (0-0.2) k/uL Sodium 138 (137-145) mmol/L Potassium 4.4 (3.5-5.1) mmol/L Chloride 105 (98-107) mmol/L Carbon Dioxide 23 (22-30) mmol/L Anion Gap 10 mmol/L BUN 9 (7-17) mg/dL Creatinine 0.73 (0.52-1.04) mg/dL Est GFR (CKD-EPI)AfAm >90 (>60 ml/min/1.73 sqM) Est GFR (CKD-EPI)NonAf >90 (>60 ml/min/1.73 sqM) Glucose 121 H (74-99) mg/dL Plasma Lactic Acid Benedict 1.5 (0.7-2.0) mmol/L Calcium 9.4 (8.4-10.2) mg/dL Total Bilirubin 0.7 (0.2-1.3) mg/dL AST 19 (14-36) U/L ALT 9 (4-34) U/L Alkaline Phosphatase 66 (38-126) U/L Total Protein 7.2 (6.3-8.2) g/dL Albumin 4.1 (3.5-5.0) g/dL Disposition Clinical Impression: Abscess of breast, right Disposition: HOME SELF-CARE Condition: Stable Instructions (If sedation given, give patient instructions): Abscess Incision and Drainage (DC) Additional Instructions: Apply warm compresses. Take prescribed medication as directed. Return to emergency department if symptoms worsen. Prescriptions: Sulfamethox-Tmp 800-160Mg [Bactrim Ds] 1 each PO Q12HR #20 tab Is patient prescribed a controlled substance at d/c from ED?: No Referrals: Pepito Aguilar MD [Primary Care Provider] - 1-2 days Procedures - Incision & Drainage Consent Obtained: verbal consent Indication: abscess Site: other (beareast) Anesthetic Used: lidocaine 1%, with epi I&D Cleaning Method: Betadine Sterile Field Used?: Yes Scalpel Used: #11 Needle Aspiration Performed?: Yes (30 cc purulent drainage) Irrigation Performed?: No I&D Drainage Obtained: Pus Culture Obtained?: No Patient Tolerated Procedure: well
== END 2019-04-16 18:05 | disposition home or self-care (01) ==
LOC: EC 13:55
DX: N61.1 Abscess of the breast and nipple (principal); D72.829 Elevated white blood cell count, unspecified; R68.83 Chills (without fever); R61 Generalized hyperhidrosis; I10 Essential (primary) hypertension; F17.200 Nicotine dependence, unspecified, uncomplicated; Z88.0 Allergy status to penicillin; Z79.899 Other long term (current) drug therapy
CPT/HCPCS: 10160; 36415; 80053; 83605; 85025; 87040; 99284

== ENCOUNTER 2020-10-09 02:48 | Emergency (ER) | payer MEDICARE, OTHER ==
[2020-10-09 03:01] VITALS: TEMP 98.4
[2020-10-09] MEDS ORDERED: LIDOCAINE 1% INJ 10MG/ML (20 ML MDV) SQ ONE (03:29)
[2020-10-09] MEDS ORDERED: SULFAMETHOX-TMP 800-160MG 1 EACH TAB PO STA (03:29)
[2020-10-09] MEDS ORDERED: IBUPROFEN 400 MG TAB PO STA (04:28)
[2020-10-09] MEDS ORDERED: cloNIDine HCL 0.2 MG TAB PO STA (05:11)
[2020-10-09] MEDS ORDERED: amLODIPine 10 MG TAB PO STA (05:11)
--- NOTE | 2020-10-09 05:24 | ED ---
Skin/Abscess/FB HPI - General Chief complaint: Skin/Abscess/Foreign Body Stated complaint: Abscess Time Seen by Provider: 10/09/20 03:08 Source: patient Mode of arrival: ambulatory Limitations: no limitations - History of Present Illness Initial comments: This patient is a 50-year-old woman who presents with complaint that she believes she is developing an abscess to her left breast. Patient states she has had previous abscess to the right breast that required drainage. Patient has noted going on 2 days of left breast redness, swelling, tenderness. She states that she applied some pressure and there was a small amount of whitish drainage. No fever MD complaint: discoloration Onset/Timin -: days(s) Tetanus Up to Date: yes Severity: moderate Quality: aching Consistency: constant Improves with: none Worsens with: palpation Associated symptoms: denies other symptoms Treatments Prior to Arrival: attempted to drain pus at home - Related Data Home Medications Medication Instructions Recorded Confirmed cloNIDine HCL [Catapres] 0.1 mg PO BID 05/07/17 08/05/18 Previous Rx's Medication Instructions Recorded amLODIPine [Norvasc] 10 mg PO DAILY #30 tab 05/12/17 Sulfamethox-Tmp 800-160Mg [Bactrim 1 each PO Q12HR #20 tab 04/16/19 Ds] Sulfamethox-Tmp 800-160Mg [Bactrim 2 each PO Q12HR #28 tab 10/09/20 Ds] Allergies Allergy/AdvReac Type Severity Reaction Status Date / Time Penicillins Allergy Anaphylaxis Verified 10/09/20 02:58 Review of Systems ROS Statement: Those systems with pertinent positive or pertinent negative responses have been documented in the HPI. ROS Other: All systems not noted in ROS Statement are negative. Constitutional: Denies: fever, chills Respiratory: Denies: dyspnea Cardiovascular: Denies: chest pain, palpitations Skin: Reports: as per HPI, change in color Past Medical History Past Medical History: Asthma, Hypertension Additional Past Medical History / Comment(s): Carpal Tunnel, Neuropathy Pain, Kidney Stone History of Any Multi-Drug Resistant Organisms: None Reported Past Surgical History: Cholecystectomy Additional Past Surgical History / Comment(s): Right ureteral stent insertion, right ESWL, right knee cartilage shaved. Past Anesthesia/Blood Transfusion Reactions: No Reported Reaction Additional Past Anesthesia/Blood Transfusion Reaction / Comment(s): ASPIRATED IN 2000 DURING GALLBLADDER SURGERY Past Psychological History: Anxiety Smoking Status: Current every day smoker Past Alcohol Use History: None Reported Past Drug Use History: Marijuana - Past Family History Mother Family Medical History: Coronary Artery Disease (CAD) Additional Family Medical History / Comment(s): bipolar Father Family Medical History: Cancer General Exam Limitations: no limitations General appearance: alert, in no apparent distress Head exam: Present: atraumatic, normocephalic Respiratory exam: Present: normal lung sounds bilaterally. Absent: respiratory distress, wheezes, rales, rhonchi, stridor Cardiovascular Exam: Present: regular rate, normal rhythm, normal heart sounds. Absent: systolic murmur, diastolic murmur, rubs, gallop GI/Abdominal exam: Present: soft. Absent: tenderness, guarding, rebound Skin exam: Present: warm, dry, intact, erythema (Left breast) Course Vital Signs 10/09/20 10/09/20 10/09/20 02:58 04:51 05:26 Temperature 98.4 F Pulse Rate 85 78 65 Respiratory 16 16 18 Rate Blood Pressure 188/114 195/108 180/99 O2 Sat by Pulse 97 98 97 Oximetry Procedures - Hamel Protocol (Time Out) Procedure Performed:: Drainage of abscess of left breast Performing Provider: Edy Ghosh Nurse: Rex Tubbs Patient Identification (2 identifiers required): Chart, Verbal, Arm Band, Name, Birthdate Patient/[employer] has Confirmed: Identity, Site, Procedure, Consent Site: Left breast Medical Decision Making - Medical Decision Making (Exam performed with MALIK Goodman present. There is erythema, warmth, i nduration to the left breast, the superior medial aspect. There is no fluctuance. The areas approximately 5 cm diameter. Eyes the patient was adamant that there had been some drainage, I did administer some local lidocaine and then attempt a needle aspiration without obtaining any fluid. The patient is directed to follow with the general surgeon. Other local care discussed. Patient given antibiotics here and prescription. Return parameters and follow- up discussed. Disposition Clinical Impression: Mastitis, Headache, Hypertension Disposition: HOME SELF-CARE Condition: Good Instructions (If sedation given, give patient instructions): Mastitis (ED), Acute Headache (ED), Hypertension (ED) Prescriptions: Sulfamethox-Tmp 800-160Mg [Bactrim Ds] 2 each PO Q12HR #28 tab Is patient prescribed a controlled substance at d/c from ED?: No Referrals: Pepito Aguilar MD [Primary Care Provider] - 1-2 days Suyapa Guillory MD [STAFF PHYSICIAN] - 1-2 days
[2020-10-09] MEDS ORDERED: BUTA/APAP/CAF/COD 50-325-40-30 CAP PO ONE (05:45)
[2020-10-09 05:58] VITALS: BP 181/102; PULSE 64; RESP 16
== END 2020-10-09 05:45 | disposition home or self-care (01) ==
LOC: EC 02:48
DX: N61.0 Mastitis without abscess (principal); R51.9 Headache, unspecified; I10 Essential (primary) hypertension; F17.200 Nicotine dependence, unspecified, uncomplicated; J45.909 Unspecified asthma, uncomplicated; Z88.0 Allergy status to penicillin; Z79.899 Other long term (current) drug therapy
CPT/HCPCS: 99283; 10060; J2001

== ENCOUNTER 2020-10-12 06:57 | Inpatient (IN) | payer MEDICARE, OTHER ==
--- NOTE | 2020-10-12 08:11 | P.GSHP ---
History of Present Illness H&P Date: 10/12/20 Chief Complaint: Swelling/mass left breast [place] Magaña is a 50-year-old white female who presented to the emergency room approximately 4 days ago with a area of swelling in her left breast. This started approximately Friday of last week and she was seen in the emergency room on Friday. The patient at this time states that the area has become progressively more swollen. It is tender. She is complaining of fever and chills. She has vomited as well. She has increased area of redness now over the left breast. She has not had a recent mammogram. She did have an ultrasound performed of the right breast in March 2019 which revealed a 6.1 by his 5 cm solid l esion considered to be highly suggestive of malignancy. At that time it was drained and biopsied and she was told that it was an infection and it resolved. She has not had any recent trauma or infection in the breast. She developed does have eczema and it was on her chest wall and she was itching and thinks tht may have what precipitated the abscess. She has had breast abscesses in the past bilaterally and has had blistering. That in the right was necessary to be drained in the operating room. Caffeine: 2 cups of coffee in the morning Nicotine: Less than a pack per day Chocolate: Occasional Family history: Mother: Uterine cancer Hormonal history: Menarche: 11 [id number], breast fed: no, age at : 30 periods regular BCP: 4 years hormones: none Surgical history: gallbladder knee kidney stones times 3 Medical History: HTN Eczema back pain 3 herniated disc sciatica Neuropathy hands and feet Social history: Nicotine: Less than a pack per day Alcohol: Negative Drugs: Marijuana/twice a day - Constitutional Constitutional: Reports fever, Reports sweats - EENT Eyes: bilateral blurred vision Ears: deny: decreased hearing, tinnitus Ears, nose, mouth and throat: Reports headache, Denies sore throat - Breasts Breasts: bilateral: as per HPI - Cardiovascular Cardiovascular: Denies chest pain, Denies shortness of breath - Respiratory Respiratory: Reports as per HPI - Gastrointestinal Gastrointestinal: Denies abdominal pain, Denies diarrhea, Denies nausea, Denies vomiting - Genitourinary (Female) Genitourinary: Reports kidney stones - Menstruation Menstruation: Reports period normal - Musculoskeletal Musculoskeletal: Reports as per HPI - Integumentary Comment: Eczema Integumentary: Reports as per HPI - Neurological Neurological: Denies numbness, Denies weakness - Psychiatric Psychiatric: Denies anxiety, Denies depression - Endocrine Endocrine: Denies fatigue, Denies weight change - Hematologic/Lymphatic Comment: none - Allergic/Immunologic Comment: allergic to PCN tongue swells Allergic/Immunologic: Reports as per HPI Past Medical History Past Medical History: Asthma, Hypertension Additional Past Medical History / Comment(s): Carpal Tunnel, Neuropathy Pain, Kidney Stone History of Any Multi-Drug Resistant Organisms: None Reported Past Surgical History: Cholecystectomy Additional Past Surgical History / Comment(s): Right ureteral stent insertion, right ESWL, right knee cartilage shaved. Past Anesthesia/Blood Transfusion Reactions: No Reported Reaction Additional Past Anesthesia/Blood Transfusion Reaction / Comment(s): ASPIRATED IN 2000 DURING GALLBLADDER SURGERY Past Psychological History: Anxiety Smoking Status: Current every day smoker Past Alcohol Use History: None Reported Additional Past Alcohol Use History / Comment(s): SMOKES 1 PPD SINCE AGE 15 Past Drug Use History: Marijuana Additional Drug Use History / Comment(s): USES MARIJUANA DAILY-INSTRUCTED TO REFRAIN FROM USE FOR AT LEAST 24 HOURS PROR TO PROCEDURE - Past Family History Mother Family Medical History: Coronary Artery Disease (CAD) Additional Family Medical History / Comment(s): bipolar Father Family Medical History: Cancer Medications and Allergies Home Medications Medication Instructions Recorded Confirmed Type cloNIDine HCL [Catapres] 0.1 mg PO BID 05/07/17 10/12/20 History amLODIPine [Norvasc] 10 mg PO DAILY #30 tab 05/12/17 10/12/20 Rx Sulfamethox-Tmp 800-160Mg [Bactrim 2 each PO Q12HR #28 tab 10/09/20 10/12/20 Rx Ds] Allergies Allergy/AdvReac Type Severity Reaction Status Date / Time Penicillins Allergy Anaphylaxis Verified 10/12/20 07:24 Surgical - Exam Vital Signs Temp Pulse Resp BP Pulse Ox 99.1 F 103 H 18 164/99 96 10/12/20 07:26 10/12/20 07:26 10/12/20 07:26 10/12/20 07:26 10/12/20 07:26 BMI 29.5 - General moderate distress - Eyes normal ocular movement - ENT no hearing loss, no congestion - Neck no masses, trachea midline - Respiratory normal respiratory effort, clear to auscultation - Cardiovascular Rhythm: regular Heart Sounds: normal: S1, S2 - Abdomen Abdomen: soft, non tender, no guarding, no rigid, no rebound - Integumentary Eczema over chest wall and erythema left breast - Neurologic no disoriented, no combative - Musculoskeletal limping - Psychiatric oriented to time, oriented to person, oriented to place, speech is normal, memory intact Breast Exam: BRA: 38C inpsection: Erythema left breast with inversion of the left nipple/fluctuance periareolar area greatest on the medial aspect Palpation Right breast: Multi-positional exam eczema over her breast but no dominant masses or nodules of concern fibrocystic changes Right axilla: No adenopathy of concern Left breast: Multi-positional exam erythema and fluctuance periareolar region tender to palpation/eczema over breast Left axilla: Swelling/adenopathy Results Ultrasound from March 2019 of the right breast reviewed/no recent radiographic studies Assessment and Plan Assessment: Impression: 1. Probable abscess posteriorly area left breast 2. Eczema 3. At neuropathy left axilla 4. Fibrocystic breast changes Most likely the patient developed eczema over her breast she was scratching this developed an abrasion and resulting in any abscess Plan: 1. Ultrasound left breast 2. Incision and drainage in the operating room 3. Probable admission for IV antibiotics Risks and benefits of the procedure discussed with the patient. She understands that this could require more than one operative drainage. She understands that if this were cancer and may be necessary to remove the entire area at the time of I&D. She understands that this will be left open with packing. She wishes to proceed. Cc: Dr. Aguilar
[2020-10-12] MEDS ORDERED: VANCOMYCIN IV PER PHARMACY 1 EACH MISC MISCELLANE PRN ×2 (09:20→17:02)
[2020-10-12] MEDS: LACTATED RINGERS 1,000 ML IV ONE ×2 (09:21→11:47)
[2020-10-12] MEDS ORDERED: LIDOCAINE 1% (10MG/ML) FOR IV START INTRADERMA ONE (09:22)
[2020-10-12] MEDS ORDERED: HEPARIN SODIUM,PORCINE/PF 5,000 UNIT/0.5 ML SYRINGE SQ ONE (09:27)
[2020-10-12] MEDS ORDERED: ONDANSETRON 4 MG/2 ML VIAL ONE (09:28)
[2020-10-12] MEDS ORDERED: ONDANSETRON 4 MG/2 ML VIAL IVP ONE (09:29)
[2020-10-12] MEDS ORDERED: VANCOMYCIN 1,250 MG in SODIUM CHLORIDE 0.9% 250 ML IVPB PRN (09:30)
[2020-10-12] MEDS ORDERED: DEXAMETHASONE SOD PHOSPHATE 4 MG/ML 1 ML VIAL IVP ONE (09:30)
[2020-10-12] MEDS ORDERED: HEPARIN SODIUM,PORCINE 5,000 UNIT/ML 1 ML VIAL SQ ONE (09:31)
[2020-10-12] MEDS ORDERED: LACTATED RINGERS 1,000 ML IV ONE (09:34)
[2020-10-12] MEDS ORDERED: NALOXONE 0.4 MG/ML 1 ML VIAL IV PRN (10:21)
[2020-10-12] MEDS ORDERED: ONDANSETRON 4 MG/2 ML VIAL IVP PRN (10:21)
--- NOTE | 2020-10-12 10:21 | P.OP ---
Date of Procedure: 10/12/20 Preoperative Diagnosis: Abscess left breast Postoperative Diagnosis: Same Procedure(s) Performed: Incision and drainage complex abscess left breast 10 x 8 cm Anesthesia: TAMIE Surgeon: Suyapa Guillory Estimated Blood Loss (ml): 5 IV fluids (ml): 400 Pathology: none sent (Cultures obtained) Condition: stable Disposition: floor Indications for Procedure: Abscess left breast complex Operative Findings: Complex abscess 10 x 8 cm left breast Description of Procedure: The patient is a 50-year-old white female who presented with a inflamed erythematous abscess in the left periareolar region. She has a history of eczema and was scratching the area most likely developed an abrasion leading to the abscess. An ultrasound confirmed the area appeared to be consistent with an abscess. Risks and benefits of incision and drainage were discussed with the patient and she wished to proceed. The patient was taken to the operative suite and following induction of anesthesia the left breast was prepped and draped in a sterile fashion. Periareolar incision was made in the medial aspect of the breast and purulent drainage was obtained. Aerobic and anaerobic cultures were obtained. The abscess was well irrigated the cavity was approximately 8 cm x 10 cm and loculated. The loculations were broken down. Was irrigated with a liter of warm saline. Following this it was packed with one-inch plain gauze. The patient tolerated the procedure in stable condition. She will be admitted for IV antibiotic therapy.
[2020-10-12] MEDS ORDERED: HYDROmorphone 0.5 MG/0.5 ML SYRINGE IVP ONE ×2 (10:33→10:44)
--- NOTE | 2020-10-12 10:42 | USB ---
Reason for exam: clinical finding. History: Excisional biopsy of the right breast, 2010. Physical Findings: Nurse did not find any significant physical abnormalities on exam. US Breast Limited LT Left limited breast ultrasound including focal area of concern, retroareolar and axilla demonstrates a 4.9 x 5.2 x 2.4cm lobulated, heterogeneous complex collection with surrounding hyperemia and thru transmission at the posterior nipple findings suggest abscess and a 3.3 x 3.6 x 1.4cm lymph node at the axilla, mulitiple nodes, likely reactive, largest measured. Left breast 5-12 o'clock, periareolar and axilla scanned. These results were verbally communicated with the patient and result sheet given to the patient on 10/12/20. ASSESSMENT: Suspicious, BI-RAD 4 RECOMMENDATION: Surgical consultation of the left breast. (for suspected abscess)
[2020-10-12] MEDS ORDERED: LABETALOL SYRINGE 5 MG/ML IVP ONE (10:44)
[2020-10-12 12:22] LABS: Basophils % (A) 0 %; Eosinophils # (A) 0.1 k/uL (0-0.7); Eosinophils % (A) 0 %; HCT 43.5 % (34.0-46.0); HGB 14.5 gm/dL (11.4-16.0); Lymphocytes # (A) 0.7 k/uL (1.0-4.8); Lymphocytes % (A) 4 %; MCH 30.4 pg (25.0-35.0); MCHC 33.2 g/dL (31.0-37.0); MCV 91.6 fL (80.0-100.0); Mean Platelet Volume 7.8; Monocytes # (A) 0.8 k/uL (0-1.0); Monocytes % (A) 5 %; Neutrophils # (A) 15.2 k/uL (1.3-7.7); Neutrophils % (A) 90 %; Platelet Count 353 k/uL (150-450); RBC 4.75 m/uL (3.80-5.40); RDW 14.4 % (11.5-15.5); WBC 16.9 k/uL (3.8-10.6)
[2020-10-12] MEDS: HYDROcodone/APAP 5-325MG 1 EACH TAB PO PRN ×3 (13:23→21:34)
[2020-10-12] MEDS: HEPARIN SODIUM,PORCINE/PF 5,000 UNIT/0.5 ML SYRINGE SQ SCH ×2 (16:38→23:46)
[2020-10-12 19:09] LABS: Calcium 9.6 mg/dL (8.4-10.2); Potassium 5.3 mmol/L (3.5-5.1)
[2020-10-12] MEDS: SODIUM CHLORIDE 0.9% 1,000 ML IV SCH ×2 (19:09→21:40)
[2020-10-12 19:21] LABS: C Reactive Protein 19.9 mg/dL (<1.0)
--- NOTE | 2020-10-12 20:07 | P.HPIM ---
History of Present Illness H&P Date: 10/12/20 Chief Complaint: Left breast abscess. Patient is a 50-year-old female with a known history of asthma, hypertension, anxiety, back pain, neuropathy in the hands, history of renal stones and feet and currently everyday smoker and marijuana use daily presents to ER with complaints of swelling and redness of the left breast. Patient states that she was in the ER 4 days ago with an area swelling and abscess in her left breast.. Patient started having redness after scratching of the eczematous skin 2 days prior. Patient had bedside I&D done in the ER and was sent home with antibiotics in the form of Bactrim. Patient states that swelling is progressively getting worse and is having subjective fevers and chills. She also vomited x1. Patient was seen by Dr. Mannie Suresh and was taken to the OR for incision and drainage. Patient otherwise denies any chest pain shortness of breath. No abdominal pain or diarrhea. Patient had breast abscess in the past bilaterally. Laboratory showed WBC 16.9 hemoglobin 14.5 and platelets 353 Potassium 5.3, BUN 12 and creatinine 0.89 CRP is 19.9 Patient was given a dose of vancomycin. Ultrasound left breast showed retroareolar and axilla demonstrates 4.9 x 5.2 x 2.4 cm lobulated heterogeneous complex collection with surrounding hyperemia highly suggestive of abscess. Review of Systems Constitutional: Patient denies any fever or chills . No generalized weakness or weight loss. Abdomen: Patient denied nausea vomiting and diarrhea and abdominal pain. Cardiovascular: Patient denies any chest pain or short of breath no palpitations. Respiratory: patient denied any cough or sputum production. No shortness of breath Neurologic: Patient denied any numbness or tingling headache. Musculoskeletal: Patient denies any complaints of joint swelling or deformity. Skin: Left breast swelling redness and pain. Psychiatric: Negative Endocrine: No heat or cold intolerance. No recent weight gain. Genitourinary: No dysuria or hematuria. All other 14 point ROS negative except the above Past Medical History Past Medical History: Asthma, Hypertension Additional Past Medical History / Comment(s): Carpal Tunnel, Neuropathy Pain, Kidney Stone History of Any Multi-Drug Resistant Organisms: None Reported Past Surgical History: Cholecystectomy Additional Past Surgical History / Comment(s): Right ureteral stent insertion, right ESWL, right knee cartilage shaved. Past Anesthesia/Blood Transfusion Reactions: No Reported Reaction Additional Past Anesthesia/Blood Transfusion Reaction / Comment(s): ASPIRATED IN 2000 DURING GALLBLADDER SURGERY Past Psychological History: Anxiety Smoking Status: Current every day smoker Past Alcohol Use History: None Reported Additional Past Alcohol Use History / Comment(s): SMOKES 1 PPD SINCE AGE 15 Past Drug Use History: Marijuana Additional Drug Use History / Comment(s): USES MARIJUANA DAILY-INSTRUCTED TO REFRAIN FROM USE FOR AT LEAST 24 HOURS PROR TO PROCEDURE - Past Family History Mother Family Medical History: Cancer, Coronary Artery Disease (CAD) Additional Family Medical History / Comment(s): uterine,bipolar Father Family Medical History: Cancer Medications and Allergies Home Medications Medication Instructions Recorded Confirmed Type cloNIDine HCL [Catapres] 0.1 mg PO BID 05/07/17 10/12/20 History amLODIPine [Norvasc] 10 mg PO DAILY #30 tab 05/12/17 10/12/20 Rx Sulfamethox-Tmp 800-160Mg [Bactrim 2 each PO Q12HR #28 tab 10/09/20 10/12/20 Rx Ds] Allergies Allergy/AdvReac Type Severity Reaction Status Date / Time Penicillins Allergy Anaphylaxis Verified 10/12/20 09:15 Physical Exam Vitals: Vital Signs Temp Pulse Pulse Resp BP BP Pulse Ox 10/12/20 14:35 98.2 F 88 16 135/87 95 10/12/20 13:35 73 18 152/81 95 10/12/20 13:05 82 18 148/102 97 10/12/20 12:35 86 18 151/85 97 10/12/20 12:20 78 18 153/90 95 10/12/20 12:05 85 18 151/86 95 10/12/20 11:50 98.3 F 76 18 177/81 95 10/12/20 10:45 92 16 148/82 99 10/12/20 10:30 104 H 14 207/112 99 10/12/20 10:22 97.0 F L 115 H 16 197/108 98 10/12/20 09:17 98.6 F 100 18 185/97 96 10/12/20 07:26 99.1 F 103 H 18 164/99 96 Intake and Output 10/12/20 10/12/20 10/12/20 06:59 14:59 22:59 Intake Total 850 Output Total 5 Balance 845 Intake: IV 850 Output: Estimated Blood Loss 5 Other: Weight 75.1 kg PHYSICAL EXAMINATION: Patient is lying in the bed comfortably, no acute distress, awake alert and oriented.. HEENT: Normocephalic. Neck is supple. Pupils reactive. Nostrils clear. Oral cavity is moist. Neck reveals no JVD, carotid bruits, or thyromegaly. CHEST EXAMINATION: Trachea is central. Symmetrical expansion. Lung bansal clear to auscultation and percussion. CARDIAC: Normal S1, S2 with no gallops. No murmurs ABDOMEN: Soft. Bowel sounds normal. No organomegaly. No abdominal bruits. Extremities: reveal no edema. No clubbing or cyanosis Neurologically awake, alert, oriented x3 with well-coordinated movements. No focal deficits noted Skin: No rash or skin lesions. Left breast surgical site is packed. Surrounding t erythema and tenderness.. No purulent drainage noted currently. Psychiatric: Coperative. Nonsuicidal Musculoskeletal: No joint swelling or deformity. Normal range of motion. Results CBC & Chem 7: 10/12/20 11:29 10/12/20 18:23 Labs: Abnormal Lab Results - Last 24 Hours (Table) 10/12/20 Range/Units 11:29 WBC 16.9 H (3.8-10.6) k/uL Neutrophils # 15.2 H (1.3-7.7) k/uL Lymphocytes # 0.7 L (1.0-4.8) k/uL Thrombosis Risk Factor Assmnt - DVT/VTE Prophylaxis DVT/VTE Prophylaxis: Pharmacologic Prophylaxis ordered - Choose All That Apply Any of the Below Risk Factors Present?: Yes Each Factor Represents 1 point: Abnormal pulmonary function (COPD), Age 41-60 years, Obesity (BMI >25) Other Risk Factors: Yes Each Risk Factor Represents 2 Points: Major surgery Other congenital or acquired thrombophilia - If yes, enter type in comment: No Thrombosis Risk Factor Assessment Total Risk Factor Score: 5 Thrombosis Risk Factor Assessment Level: High Risk Assessment and Plan Assessment: Left breast abscess. . Possibly developed with scratching the eczematous skin over the left breast. Sepsis secondary to above. Hypertension Eczema Bilateral peripheral neuropathy nondiabetic Chronic back pain Ongoing nicotine addiction and marijuana use Prior history of right breast abscess History of renal stones DVT prophylaxis with heparin subcu Plan: Patient will be current gentle IV hydration. Continue with vancomycin as per pharmacy dosing protocol. Patient was seen by general surgery and is currently status post incision and drainage. Follow-up culture reports. Continue with blood pressure medications and pain management with morphine. ID will be consulted. Continue to follow closely. Time with Patient: Greater than 30
[2020-10-12] MEDS: cloNIDine HCL 0.1 MG TAB PO SCH (21:36)
[2020-10-12] MEDS: VANCOMYCIN 1,250 MG in SODIUM CHLORIDE 0.9% 250 ML IVPB SCH (21:36)
[2020-10-12] MEDS: MORPHINE SULFATE 4 MG/ML SYRINGE IV PRN (22:25)
[2020-10-13] MEDS: HYDROcodone/APAP 5-325MG 1 EACH TAB PO PRN ×4 (01:47→19:45)
[2020-10-13 06:12] LABS: Basophils % (A) 0 %; Eosinophils # (A) 0.1 k/uL (0-0.7); Eosinophils % (A) 1 %; HCT 39.6 % (34.0-46.0); HGB 13.2 gm/dL (11.4-16.0); Lymphocytes # (A) 2.2 k/uL (1.0-4.8); Lymphocytes % (A) 17 %; MCH 30.1 pg (25.0-35.0); MCHC 33.2 g/dL (31.0-37.0); MCV 90.8 fL (80.0-100.0); Mean Platelet Volume 7.4; Monocytes % (A) 8 %; Neutrophils # (A) 9.6 k/uL (1.3-7.7); Neutrophils % (A) 72 %; Platelet Count 387 k/uL (150-450); RBC 4.36 m/uL (3.80-5.40); RDW 14.8 % (11.5-15.5); WBC 13.3 k/uL (3.8-10.6)
[2020-10-13] MEDS: MORPHINE SULFATE 4 MG/ML SYRINGE IV PRN ×2 (06:58→20:07)
--- NOTE | 2020-10-13 07:24 | P.CONS ---
History of Present Illness - Reason for Consult Consult date: 10/12/20 Left breast abscess Requesting physician: Latia Sloan - Chief Complaint Left breast pain and swelling 2 days - History of Present Illness Patient is a 50-year-old female who presented to [facility] ER on 10/09/2020 for evaluation of left breast pain and swelling patient started having a swelling redness of the left breast 2 days before presentation to the hospital patient was describing of sharp pain into the left breast, intensity is about 6-7 out of 10 and no radiation patient was evaluated by ER physician and he tried to aspirate the area without any drainage and discharge the patient on Bactrim DS and advised to follow-up with Dr. Chand, patient subsequently was evaluated by Dr. Chand earlier this morning she has been admitted to hospital patient is status post drainage of the left breast abscess cultures have been obtained which are currently pending patient has been admitted to the hospital infectious disease was consulted for further management of antibiotic therapy Review of Systems Positive point has been mentioned in the HPI rest of the systems are negative Past Medical History Past Medical History: Asthma, Hypertension Additional Past Medical History / Comment(s): Carpal Tunnel, Neuropathy Pain, Kidney Stone History of Any Multi-Drug Resistant Organisms: None Reported Past Surgical History: Cholecystectomy Additional Past Surgical History / Comment(s): Right ureteral stent insertion, right ESWL, right knee cartilage shaved. Past Anesthesia/Blood Transfusion Reactions: No Reported Reaction Additional Past Anesthesia/Blood Transfusion Reaction / Comm: ASPIRATED IN 2000 DURING GALLBLADDER SURGERY Past Psychological History: Anxiety Smoking Status: Current every day smoker Past Alcohol Use History: None Reported Additional Past Alcohol Use History / Comment(s): SMOKES 1 PPD SINCE AGE 15 Past Drug Use History: Marijuana Additional Drug Use History / Comment(s): USES MARIJUANA DAILY-INSTRUCTED TO REFRAIN FROM USE FOR AT LEAST 24 HOURS PROR TO PROCEDURE - Past Family History Mother Family Medical History: Cancer, Coronary Artery Disease (CAD) Additional Family Medical History / Comment(s): uterine,bipolar Father Family Medical History: Cancer Medications and Allergies Home Medications Medication Instructions Recorded Confirmed Type cloNIDine HCL [Catapres] 0.1 mg PO BID 05/07/17 10/12/20 History amLODIPine [Norvasc] 10 mg PO DAILY #30 tab 05/12/17 10/12/20 Rx Sulfamethox-Tmp 800-160Mg [Bactrim 2 each PO Q12HR #28 tab 10/09/20 10/12/20 Rx Ds] Allergies Allergy/AdvReac Type Severity Reaction Status Date / Time Penicillins Allergy Anaphylaxis Verified 10/12/20 09:15 Physical Exam Vitals: Vital Signs Temp Pulse Pulse Resp BP BP Pulse Ox 10/12/20 14:35 98.2 F 88 16 135/87 95 10/12/20 13:35 73 18 152/81 95 10/12/20 13:05 82 18 148/102 97 10/12/20 12:35 86 18 151/85 97 10/12/20 12:20 78 18 153/90 95 10/12/20 12:05 85 18 151/86 95 10/12/20 11:50 98.3 F 76 18 177/81 95 10/12/20 10:45 92 16 148/82 99 10/12/20 10:30 104 H 14 207/112 99 10/12/20 10:22 97.0 F L 115 H 16 197/108 98 10/12/20 09:17 98.6 F 100 18 185/97 96 10/12/20 07:26 99.1 F 103 H 18 164/99 96 Intake and Output 10/12/20 10/12/20 10/12/20 06:59 14:59 22:59 Intake Total 850 Output Total 255 Balance 595 Intake: IV 850 Output: Urine 250 Estimated Blood Loss 5 Other: # Voids 1 Weight 75.1 kg GENERAL DESCRIPTION: Middle-aged female lying in bed, no distress. No tachypnea or accessory muscle of respiration use. HEENT: Shows Pallor , no scleral icterus. Oral mucous membrane is dry. No pharyngeal erythema or thrush NECK: Trachea central, no thyromegaly. LUNGS: Unlabored breathing. Clear to auscultation anteriorly. No wheeze or crackle. HEART: S1, S2, regular rate and rhythm. No loud murmur ABDOMEN: Soft, no tenderness , guarding or rigidity, no organomegaly EXTREMITIES: No edema of feet. SKIN: No rash, no masses palpable. left breast with swelling , redness and mild induration , wound packed NEUROLOGICAL: The patient is awake, alert, oriented x3, mood and affect normal. Results CBC & Chem 7: 10/13/20 05:05 07/29/21 18:23 Labs: Abnormal Lab Results - Last 24 Hours (Table) 10/12/20 Range/Units 11:29 WBC 16.9 H (3.8-10.6) k/uL Neutrophils # 15.2 H (1.3-7.7) k/uL Lymphocytes # 0.7 L (1.0-4.8) k/uL Assessment and Plan Assessment: 1-patient presented to hospital with left breast abscess that has failed outpatient oral Bactrim DS therapy status post drainage of this abscess will need to cover for the gram-positive skin carey to the likely pathogen such as MRSA 2-patient with penicillin allergy that would limit the number of antibiotics safe to use (1) Left breast abscess Current Visit: Yes Status: Acute Code(s): N61.1 - ABSCESS OF THE BREAST AND NIPPLE SNOMED Code(s): 24804639 Plan: 1-we will obtain blood cultures CRP and BMP 2-vancomycin pharmacy to dose her with a target trough of 15 while watching her kidney function and Vanco trough closely. We will follow on clinical condition and cultures to further adjust medication if needed Thank you for this consultation we will follow the patient along with you Time with Patient: Greater than 30
[2020-10-13] MEDS: amLODIPine 10 MG TAB PO SCH (08:41)
[2020-10-13] MEDS: cloNIDine HCL 0.1 MG TAB PO SCH ×2 (08:41→21:08)
[2020-10-13] MEDS: HEPARIN SODIUM,PORCINE/PF 5,000 UNIT/0.5 ML SYRINGE SQ SCH ×3 (08:41→23:13)
[2020-10-13] MEDS: VANCOMYCIN 1,250 MG in SODIUM CHLORIDE 0.9% 250 ML IVPB SCH ×2 (08:41→21:08)
--- NOTE | 2020-10-13 08:43 | P.PN ---
Subjective Progress Note Date: 10/13/20 Principal diagnosis: Abscess left breast Patient is postop day #1 incision and drainage abscess left breast. She is presently on vancomycin. She states that she feels much better. She has decreased pain in the breast. The patient's white count is decreased from 16.9- 13.3. C-reactive protein was 19.9. Medicine and infectious disease notes appreciated. Objective - Vital Signs Vital signs: Vital Signs Temp 98.2 F 10/13/20 07:48 Pulse 67 10/13/20 07:48 Resp 16 10/13/20 07:48 BP 182/78 10/13/20 07:48 Pulse Ox 96 10/13/20 07:48 Intake & Output 10/12/20 10/13/20 10/13/20 18:59 06:59 18:59 Intake Total 1090 540 Output Total 255 Balance 835 540 Weight 75.1 kg Intake: IV 850 Oral 240 540 Output: Urine 250 Estimated Blood Loss 5 Other: # Voids 1 2 - Constitutional General appearance: Present: average body habitus - EENT Eyes: Present: EOMI ENT: Present: hearing grossly normal - Neck Neck: Present: normal ROM - Respiratory Details: Mild wheezing right lung base - Cardiovascular Heart sounds: normal: S1, S2 - Integumentary Integumentary Comment(s): Incision is clean and dry/packing is changed Erythema remains over the left breast but has decreased - Psychiatric Psychiatric: Present: A&O x's 3, appropriate affect, intact judgment & insight - Labs CBC & Chem 7: 10/13/20 05:05 10/12/20 18:23 Labs: Abnormal Lab Results - Last 24 Hours (Table) 10/12/20 10/12/20 10/13/20 Range/Units 11:29 18:23 05:05 WBC 16.9 H 13.3 H (3.8-10.6) k/uL Neutrophils # 15.2 H 9.6 H (1.3-7.7) k/uL Lymphocytes # 0.7 L (1.0-4.8) k/uL Potassium 5.3 H (3.5-5.1) mmol/L Glucose 159 H (74-99) mg/dL C-Reactive Protein 19.9 H (<1.0) mg/dL Microbiology - Last 24 Hours (Table) 10/12/20 10:00 Gram Stain - Preliminary Breast - Left Wound Culture - Preliminary 10/12/20 10:00 Anaerobic Culture - Preliminary Breast - Left Assessment and Plan Assessment: Impression: 1. Postop day 1 incision and drainage abscess left breast 2. Eczema 3. Adenopathy left axilla most likely related to the abscess 4. Fibrocystic breast changes Most likely the patient developed eczema over her breast as she was scratching this developed an abrasion and resulting in any abscess Plan: 1. Packing changes every shift 2. IV antibiotics 3. Will follow as needed
--- NOTE | 2020-10-13 15:03 | P.PN ---
Subjective Progress Note Date: 10/13/20 Patient is a 50-year-old female with a known history of asthma, hypertension, anxiety, back pain, neuropathy in the hands, history of renal stones and feet and currently everyday smoker and marijuana use daily presents to ER with complaints of swelling and redness of the left breast. Patient states that she was in the ER 4 days ago with an area swelling and abscess in her left breast.. Patient started having redness after scratching of the eczematous skin 2 days prior. Patient had bedside I&D done in the ER and was sent home with antibiotics in the form of Bactrim. Patient states that swelling is progressively getting worse and is having subjective fevers and chills. She also vomited x1. Patient was seen by Dr. Mannie Suresh and was taken to the OR for incision and drainage. Patient otherwise denies any chest pain shortness of breath. No abdominal pain or diarrhea. Patient had breast abscess in the past bilaterally. Laboratory showed WBC 16.9 hemoglobin 14.5 and platelets 353 Potassium 5.3, BUN 12 and creatinine 0.89 CRP is 19.9 Patient was given a dose of vancomycin. Ultrasound left breast showed retroareolar and axilla demonstrates 4.9 x 5.2 x 2.4 cm lobulated heterogeneous complex collection with surrounding hyperemia highly suggestive of abscess. 10/13/2020 Patient is seen and evaluated and follow-up with no acute overnight issues. Patient's blood pressure slightly elevated and is continued on clonidine along with Norvasc and blood pressure improved with resuming home medications. He should is status post incision and drainage of left breast abscess with Dr. Guillory who is also following. [place] disease following an patient is maintained on IV vancomycin while awaiting for cultures to finalized. Patient states the swelling and discomfort is much improved and surgical site looks clean, dry, and intact with iodoform noted. Patient denies any further increase drainage noted from the site. White blood count trending down at 13.3 and hemoglobin is stable at 13.2. Repeat labs to monitor closely. Review of systems: Constitutional: No reports of fatigue, fever, or chills, reports some tenderness of the left breast although significantly improved status post incision and drainage yesterday, swelling has significantly gone down as well. Cardiovascular: No reports of chest pain or palpitations Respiratory: No reports of shortness of breath or cough GI: No reports of nausea, vomiting, or diarrhea : No reports of dysuria or retention Neurovascular: No reports of weakness or numbness All medications have been reviewed Objective - Vital Signs Vital signs: Vital Signs Temp 98.2 F 10/13/20 07:48 Pulse 67 10/13/20 07:48 Resp 16 10/13/20 07:48 BP 182/78 10/13/20 07:48 Pulse Ox 96 10/13/20 07:48 Intake & Output 10/12/20 10/13/20 10/13/20 18:59 06:59 18:59 Intake Total 1090 540 Output Total 255 Balance 835 540 Weight 75.1 kg Intake: IV 850 Oral 240 540 Output: Urine 250 Estimated Blood Loss 5 Other: # Voids 1 2 1 - Exam Patient is lying in the bed comfortably, no acute distress, awake alert and oriented.. HEENT: Normocephalic. Neck is supple. Pupils reactive. Nostrils clear. Oral cavity is moist. Neck reveals no JVD, carotid bruits, or thyromegaly. CHEST EXAMINATION: Trachea is central. Symmetrical expansion. Lung bansal clear to auscultation and percussion. CARDIAC: Normal S1, S2 with no gallops. No murmurs ABDOMEN: Soft. Bowel sounds normal. No organomegaly. No abdominal bruits. Extremities: reveal no edema. No clubbing or cyanosis Neurologically awake, alert, oriented x3 with well-coordinated movements. No focal deficits noted Skin: No rash or skin lesions. Left breast surgical site is packed. Surrounding tissue shows erythema and tenderness.. Although significantly improved, No purulent drainage noted currently. Psychiatric: Coperative. Nonsuicidal Musculoskeletal: No joint swelling or deformity. Normal range of motion. - Labs CBC & Chem 7: 10/13/20 05:05 10/12/20 18:23 Labs: Abnormal Lab Results - Last 24 Hours (Table) 10/12/20 10/12/20 10/13/20 Range/Units 11:29 18:23 05:05 WBC 16.9 H 13.3 H (3.8-10.6) k/uL Neutrophils # 15.2 H 9.6 H (1.3-7.7) k/uL Lymphocytes # 0.7 L (1.0-4.8) k/uL Potassium 5.3 H (3.5-5.1) mmol/L Glucose 159 H (74-99) mg/dL C-Reactive Protein 19.9 H (<1.0) mg/dL Microbiology - Last 24 Hours (Table) 10/12/20 10:00 Gram Stain - Preliminary Breast - Left Wound Culture - Preliminary 10/12/20 10:00 Anaerobic Culture - Preliminary Breast - Left Assessment and Plan Assessment: Left breast abscess. . Possibly developed with scratching the eczematous skin over the left breast. Status post incision and drainage Sepsis secondary to above. Hypertension Eczema Bilateral peripheral neuropathy nondiabetic Chronic back pain Ongoing nicotine addiction and marijuana use Prior history of right breast abscess History of renal stones DVT prophylaxis with heparin subcu Full code Plan: Patient will be continued on gentle IV hydration. Continue with vancomycin as per pharmacy dosing protocol. Infectious disease following and awaiting for cultures to determine discharge antibiotics. Dr. Guillory also following closely. Patient is status post incision and drainage of the left breast abscess with significant improvement in swelling and tenderness noted with some minimal redness of the surrounding tissue noted as well. Patient states she feels much better. Will repeat a.m. labs and continue to monitor closely.
[2020-10-13] MEDS: SODIUM CHLORIDE 0.9% 1,000 ML IV SCH (17:39)
--- NOTE | 2020-10-13 21:24 | PN ---
PROGRESS NOTE DATE OF SERVICE: 10/13/2020 REASON FOR FOLLOWUP: Left breast abscess. INTERVAL HISTORY: Patient is currently afebrile. The patient is breathing comfortably. Overall pain and discomfort to the left breast has slightly decreased. No chest pain, shortness of breath, cough, no abdominal pain or diarrhea. PHYSICAL EXAMINATION: Blood pressure 143/68 with a pulse of 74, temperature 98. She is 98% on room air. General description is a middle-aged female up in the bed in no distress. Respiratory system: Unlabored breathing, clear to auscultation anteriorly. Heart S1, S2. Regular rate and rhythm. Abdomen soft, no tenderness. Left breast swelling and redness has decreased. Wound base looks clean as per nurse when changing the dressing. LABS: Hemoglobin 13.1, white count 13.3, creatinine 0.89. Cultures currently pending. DIAGNOSTIC IMPRESSION AND PLAN: Patient with left breast abscess status post drainage. Cultures currently pending. Patient covered with vancomycin to continue adjusting antibiotic further based on culture report. Continue supportive care. MMODL / IJN: [id number] /
[2020-10-14] MEDS: HYDROcodone/APAP 5-325MG 1 EACH TAB PO PRN ×3 (00:32→11:58)
[2020-10-14] MEDS: cloNIDine HCL 0.1 MG TAB PO SCH (07:12)
[2020-10-14] MEDS: HEPARIN SODIUM,PORCINE/PF 5,000 UNIT/0.5 ML SYRINGE SQ SCH ×2 (07:13→16:15)
[2020-10-14] MEDS: amLODIPine 10 MG TAB PO SCH (07:13)
[2020-10-14 07:44] LABS: African American GFR (CKD) >90 (>60 ml/min/1.73 sqM); Non-African American GFR(CKD) >90 (>60 ml/min/1.73 sqM)
[2020-10-14] MEDS: VANCOMYCIN 1,250 MG in SODIUM CHLORIDE 0.9% 250 ML IVPB SCH (08:38)
[2020-10-14 10:08] LABS: Basophils # (A) 0.1 k/uL (0-0.2); Basophils % (A) 1 %; Eosinophils # (A) 0.2 k/uL (0-0.7); Eosinophils % (A) 4 %; HCT 42.1 % (34.0-46.0); HGB 13.8 gm/dL (11.4-16.0); Lymphocytes % (A) 33 %; MCH 30.4 pg (25.0-35.0); MCHC 32.9 g/dL (31.0-37.0); MCV 92.4 fL (80.0-100.0); Mean Platelet Volume 7.9; Monocytes # (A) 0.6 k/uL (0-1.0); Monocytes % (A) 10 %; Neutrophils # (A) 2.9 k/uL (1.3-7.7); Neutrophils % (A) 48 %; Platelet Count 405 k/uL (150-450); RBC 4.56 m/uL (3.80-5.40); RDW 14.3 % (11.5-15.5); WBC 6.1 k/uL (3.8-10.6)
[2020-10-14 10:11] LABS: Anion Gap 6 mmol/L; Blood Urea Nitrogen 7 mg/dL (7-17); Calcium 9.2 mg/dL (8.4-10.2); Carbon Dioxide 24 mmol/L (22-30); Chloride 108 mmol/L (98-107); Glucose 106 mg/dL (74-99); Potassium 4.4 mmol/L (3.5-5.1); Sodium 138 mmol/L (137-145)
[2020-10-14] MEDS: SODIUM CHLORIDE 0.9% 1,000 ML IV SCH (11:59)
[2020-10-14] MEDS: MORPHINE SULFATE 4 MG/ML SYRINGE IV PRN (13:06)
[2020-10-14 13:58] VITALS: BP 165/78; PULSE 68; RESP 16; TEMP 98
[2020-10-14] MEDS ORDERED: cloNIDine HCL 0.1 MG TAB PO SCH (16:00)
--- NOTE | 2020-10-14 16:39 | PN ---
PROGRESS NOTE DATE OF SERVICE: 10/14/2020 REASON FOR FOLLOWUP: Left breast abscess and cellulitis. INTERVAL HISTORY: The patient is afebrile. The patient is feeling better. Breathing comfortably. Overall, pain and discomfort to the left breast has improved. No chest pain, shortness of breath or cough No diarrhea. PHYSICAL EXAMINATION: Blood pressure 124/57, pulse of 72, temperature 98.1. She is 98% on room air. General description is a middle-aged female lying in bed in no distress. Respiratory system: Unlabored breathing, clear to auscultation anteriorly. Heart S1, S2. Regular rate and rhythm. Abdomen soft, no tenderness. Left breast is currently dressed up. LABS: Hemoglobin 13, white count normalized to 6.1, creatinine 0.60. Cultures so far pending. DIAGNOSTIC IMPRESSION AND PLAN: Patient with left breast abscess status post drainage. Culture so far negative. Overall improvement on vancomycin. Patient did have PENICILLIN ALLERGY. The patient will go home on Bactrim DS one twice a day for 10 days and close outpatient followup. MMODL / IJN: [id number] /
--- NOTE | 2020-11-06 00:11 | P.DS ---
Providers Date of admission: 10/14/20 15:53 Expected date of discharge: 10/14/20 Attending physician: Elizabeth Short Consults: 10/12/20 10:24 Consult Physician Routine Consulting Provider: Elizabeth Short Consult Reason/Comments: patietn to be admited to medicine Do you want consulting provider notified?: Yes 10/12/20 12:02 Consult Physician Urgent Consulting Provider: Asia Jones Consult Reason/Comments: left abscess status post I&D, needs abx therapy Do you want consulting provider notified?: Yes 10/13/20 08:26 Consult Physician Urgent Consulting Provider: Suyapa Guillory Consult Reason/Comments: breast abscess Do you want consulting provider notified?: Yes Primary care physician: Jeff Beyer Hospital Course: Discharge diagnosis Left breast abscess. . Possibly developed with scratching the eczematous skin over the left breast. Status post incision and drainage Sepsis secondary to above. Hypertension Eczema Bilateral peripheral neuropathy nondiabetic Chronic back pain Ongoing nicotine addiction and marijuana use Prior history of right breast abscess History of renal stones DVT prophylaxis with heparin subcu Full code Hospital course Patient is a 50-year-old female with a known history of asthma, hypertension, anxiety, back pain, neuropathy in the hands, history of renal stones and feet and currently everyday smoker and marijuana use daily presents to ER with complaints of swelling and redness of the left breast. Patient states that she was in the ER 4 days ago with an area swelling and abscess in her left breast.. Patient started having redness after scratching of the eczematous skin 2 days prior. Patient had bedside I&D done in the ER and was sent home with antibiotics in the form of Bactrim. Patient states that swelling is progressively getting worse and is having subjective fevers and chills. She also vomited x1. Patient was seen by Dr. Mannie Suresh and was taken to the OR for incision and drainage. Patient otherwise denies any chest pain shortness of breath. No abdominal pain or diarrhea. Patient had breast abscess in the past bilaterally. Laboratory showed WBC 16.9 hemoglobin 14.5 and platelets 353 Potassium 5.3, BUN 12 and creatinine 0.89 CRP is 19.9 Patient was given a dose of vancomycin. Ultrasound left breast showed retroareolar and axilla demonstrates 4.9 x 5.2 x 2.4 cm lobulated heterogeneous complex collection with surrounding hyperemia highly suggestive of abscess. 10/13/2020 Patient is seen and evaluated and follow-up with no acute overnight issues. Patient's blood pressure slightly elevated and is continued on clonidine along with Norvasc and blood pressure improved with resuming home medications. He should is status post incision and drainage of left breast abscess with Dr. Guillory who is also following. [place] disease following an patient is maintained on IV vancomycin while awaiting for cultures to finalized. Patient states the swelling and discomfort is much improved and surgical site looks clean, dry, and intact with iodoform noted. Patient denies any further increase drainage noted from the site. White blood count trending down at 13.3 and hemoglobin is stable at 13.2. Repeat labs to monitor closely. 10/14/2020 Patient was seen and examined. No complaints of pain at the I&D site. Patient has been afebrile overnight. Continued on vancomycin IV. Culture showed interval gram-negative bacilli. Patient will be continued on antibiotics involve Bactrim as per ID recommendations. Continue with home medications. Patient is being discharged home today. No other acute overnight issues. Physical examination Patient is lying in the bed comfortably, no acute distress, awake alert and oriented.. HEENT: Normocephalic. Neck is supple. Pupils reactive. Nostrils clear. Oral cavity is moist. Neck reveals no JVD, carotid bruits, or thyromegaly. CHEST EXAMINATION: Trachea is central. Symmetrical expansion. Lung bansal clear to auscultation and percussion. CARDIAC: Normal S1, S2 with no gallops. No murmurs ABDOMEN: Soft. Bowel sounds normal. No organomegaly. No abdominal bruits. Extremities: reveal no edema. No clubbing or cyanosis Neurologically awake, alert, oriented x3 with well-coordinated movements. No focal deficits noted Skin: No rash or skin lesions. Left breast surgical site is packed. Surrounding tissue shows erythema and tenderness.. Although significantly improved, No purulent drainage noted currently. Psychiatric: Coperative. Nonsuicidal Musculoskeletal: No joint swelling or deformity. Normal range of motion. Discharge vitals reviewed. Patient Condition at Discharge: Good Plan - Discharge Summary Discharge Rx Participant: Yes New Discharge Prescriptions: New Sulfamethox-Tmp 800-160Mg [Bactrim DS 800-160 mg] 1 tab PO Q12HR 10 Days #20 tab Continue cloNIDine HCL [Catapres] 0.1 mg PO BID amLODIPine [Norvasc] 10 mg PO DAILY #30 tab Discontinued Sulfamethox-Tmp 800-160Mg [Bactrim Ds] 2 each PO Q12HR #28 tab Discharge Medication List cloNIDine HCL [Catapres] 0.1 mg PO BID 05/07/17 [History] amLODIPine [Norvasc] 10 mg PO DAILY #30 tab 05/12/17 [Rx] Sulfamethox-Tmp 800-160Mg [Bactrim DS 800-160 mg] 1 tab PO Q12HR 10 Days #20 tab 10/14/20 [Rx] Follow up Appointment(s)/Referral(s): Pepito Aguilar MD [Primary Care Provider] - 1-2 Days Suyapa Guillory MD [STAFF PHYSICIAN] - 10/19/20 Patient Instructions/Handouts: Sulfamethoxazole/Trimethoprim (By mouth) Activity/Diet/Wound Care/Special Instructions: Pain management with over the counter pain relief. Take Bactrim as prescribed. Dressing changes daily using. Wash hands and wear gloves before touching dressing. Call Dr Guillory's office with any questions or concerns. Come to ER with any emergent needs. Discharge Disposition: HOME SELF-CARE
== END 2020-10-14 18:16 | disposition home or self-care (01) | DRG 855 ==
LOC: WWCWWP 06:57 → OR 06:57 → EDSTATUS 07:20 → 6PED 10:22 → OR 10-13 14:15 → OBSVTOIN 10-14 15:53 → INTOOBSV 10-14 15:53 → UNDODISOB 10-14 18:16 → UNDODISIN 10-14 18:16
PROVIDERS: ADMIT Internal Medicine; ATTEND Internal Medicine
PROC: 0H9U0ZX Drainage of Left Breast, Open Approach, Diagnostic (ICD-10-PCS; principal; 2020-10-12 09:34)
DX: A41.9 Sepsis, unspecified organism (principal); F17.210 Nicotine dependence, cigarettes, uncomplicated; N61.1 Abscess of the breast and nipple; N60.12 Diffuse cystic mastopathy of left breast; I10 Essential (primary) hypertension; L30.9 Dermatitis, unspecified; J45.909 Unspecified asthma, uncomplicated; G62.9 Polyneuropathy, unspecified; G89.29 Other chronic pain; M54.9 Dorsalgia, unspecified; F41.9 Anxiety disorder, unspecified; Z71.6 Tobacco abuse counseling; Z79.899 Other long term (current) drug therapy; Z87.442 Personal history of urinary calculi; Z90.49 Acquired absence of other specified parts of digestive tract; Z87.19 Personal history of other diseases of the digestive system; Z87.39 Personal history of other diseases of the musculoskeletal system and connective tissue; Z98.890 Other specified postprocedural states; Z88.0 Allergy status to penicillin; Z82.49 Family history of ischemic heart disease and other diseases of the circulatory system; Z81.8 Family history of other mental and behavioral disorders; Z80.9 Family history of malignant neoplasm, unspecified; Z84.2 Family history of other diseases of the genitourinary system
CPT/HCPCS: 80048; 80202; 81025; 85025; 86140; 87040; 87070; 87075; 87205

== ENCOUNTER → 2020-11-09 | Outpatient (CLI) | payer MEDICARE, OTHER ==
[2020-11-09 13:49] VITALS: BP 165/84; PULSE 78; RESP 18; TEMP 98.5
--- NOTE | 2020-11-09 14:11 | P.PN ---
Subjective Progress Note Date: 11/09/20 [place] is a 50-year-old white female who presented to the emergency room with an area of swelling in her left breast. She was sent to our office as the area became progressively more swollen. It was tender. She was complaining of fever and chills. She had vomited as well. She had increased area of redness over the left breast. She had not had a recent mammogram. She did have an ultrasound performed of the right breast in March 2019 which revealed a 6.1 by his 5 cm solid lesion considered to be highly suggestive of malignancy. At that time it was drained and biopsied and she was told that it was an infection and it resolved. She had not had any recent trauma or infection in the breast. She does have eczema and it was on her chest wall and she was itching and thinks that may have been what precipitated the abscess. She has had breast abscesses in the past bilaterally and has had blistering. That in the right was necessary to be drained in the operating room. She underwent drainage in the OR on 10-12-20. The area was doing well until about 3 days ago when the area of the skin closed and the patient developed increased erythema at the site. She is not complaining of any fever or chills. She was taking Bactrim which stopped last week. Caffeine: 2 cups of coffee in the morning Nicotine: Less than a pack per day Chocolate: Occasional Family history: Mother: Uterine cancer Hormonal history: Menarche: 11 [id number], breast fed: no, age at : 30 periods regular BCP: 4 years hormones: none Surgical history: gallbladder knee kidney stones times 3 Medical History: HTN Eczema back pain 3 herniated disc sciatica Neuropathy hands and feet Social history: Nicotine: Less than a pack per day Alcohol: Negative Drugs: Marijuana/twice a day - Constitutional Constitutional: Reports fever, Reports sweats - EENT Eyes: bilateral blurred vision Ears: deny: decreased hearing, tinnitus Ears, nose, mouth and throat: Reports headache, Denies sore throat - Breasts Breasts: bilateral: as per HPI - Cardiovascular Cardiovascular: Denies chest pain, Denies shortness of breath - Respiratory Respiratory: Reports as per HPI - Gastrointestinal Gastrointestinal: Denies abdominal pain, Denies diarrhea, Denies nausea, Denies vomiting - Genitourinary (Female) Genitourinary: Reports kidney stones - Menstruation Menstruation: Reports period normal - Musculoskeletal Musculoskeletal: Reports as per HPI - Integumentary Comment: Eczema Integumentary: Reports as per HPI - Neurological Neurological: Denies numbness, Denies weakness - Psychiatric Psychiatric: Denies anxiety, Denies depression - Endocrine Endocrine: Denies fatigue, Denies weight change - Hematologic/Lymphatic Comment: none - Allergic/Immunologic Comment: allergic to PCN tongue swells Allergic/Immunologic: Reports as per HPI Past Medical History Past Medical History: Asthma, Hypertension Additional Past Medical History / Comment(s): Carpal Tunnel, Neuropathy Pain, Kidney Stone History of Any Multi-Drug Resistant Organisms: None Reported Past Surgical History: Cholecystectomy Additional Past Surgical History / Comment(s): Right ureteral stent insertion, right ESWL, right knee cartilage shaved. Past Anesthesia/Blood Transfusion Reactions: No Reported Reaction Additional Past Anesthesia/Blood Transfusion Reaction / Comment(s): ASPIRATED IN 2000 DURING GALLBLADDER SURGERY Past Psychological History: Anxiety Smoking Status: Current every day smoker Past Alcohol Use History: None Reported Additional Past Alcohol Use History / Comment(s): SMOKES 1 PPD SINCE AGE 15 Past Drug Use History: Marijuana Additional Drug Use History / Comment(s): USES MARIJUANA DAILY-INSTRUCTED TO REFRAIN FROM USE FOR AT LEAST 24 HOURS PROR TO PROCEDURE Objective - Vital Signs Vital signs: Vital Signs Temp 98.5 F 11/09/20 13:47 Pulse 78 11/09/20 13:47 Resp 18 11/09/20 13:47 BP 165/84 11/09/20 13:47 Pulse Ox 98 11/09/20 13:47 Intake & Output 11/08/20 11/09/20 11/09/20 18:59 06:59 18:59 Weight 78.018 kg - Constitutional General appearance: Present: cooperative - EENT Eyes: Present: EOMI ENT: Present: hearing grossly normal - Neck Neck: Present: normal ROM - Respiratory Details: bilateral wheezing at the bases - Cardiovascular Rhythm: regular Heart sounds: normal: S1, S2 - Gastrointestinal General gastrointestinal: Present: soft - Integumentary Integumentary Comment(s): erythema of the left breast/ at the superior aspect - Musculoskeletal Musculoskeletal: Present: gait normal - Psychiatric Psychiatric: Present: A&O x's 3 - Additional findings Additional findings: Breast Exam: BRA: 38C inspection: Erythema left breast superior areolar area Palpation: Right breast: No dominant masses or nodules of concern Right axilla: No adenopathy of concern Left breast increased erythema superior areolar region with fullness at this site and tender to palpation Left axilla: swelling Assessment and Plan Assessment: Impression: 1. Recurrent left breast abscess 2. Cellulitis left breast 3. Following this persistent and left axilla Plan: 1. Attempted aspiration via ultrasound 2. Restart Bactrim 3. If ultrasound aspiration is unsuccessful then open incision and drainage again of the left breast abscess I have again talked to the patient about making sure that this is packed to stay open until he heals from the inside out. Additionally have talked to her about stopping smoking. She understands both of these things. She will be scheduled for interventional radiology in the near future with possible incision and drainage in the operating room was necessary.
== END | disposition home or self-care (01) ==
LOC: WWCWWP 13:08
PROVIDERS: ATTEND Surgery
DX: Z53.9 Procedure and treatment not carried out, unspecified reason (principal)

== ENCOUNTER → 2020-11-10 | Day surgery (SDC) | payer MEDICARE, OTHER ==
[2020-11-10 12:30] VITALS: BP 109/74; PULSE 65; RESP 18; TEMP 98.3
--- NOTE | 2020-11-10 14:49 | USB ---
Discontinued aspiration HISTORY: Breast abscess Ultrasound performed for procedure planning. Phlegmon was identified at the site of patient's left ni pple. IMPRESSION: Following consultations with the referring clinician, no aspiration was performed this ti me.
== END ==
LOC: RADUSWWP 11:58
PROVIDERS: ATTEND Surgery
DX: N61.1 Abscess of the breast and nipple (principal); Z53.8 Procedure and treatment not carried out for other reasons

== ENCOUNTER → 2020-11-10 | Outpatient (CLI) | payer MEDICARE, OTHER ==
[2020-11-10 16:12] VITALS: BP 109/74; PULSE 65; RESP 18; TEMP 98.3
--- NOTE | 2020-11-10 16:44 | P.PN ---
Progress Note - Text Progress Note Date: 11/10/20 The patient is a 50-year-old white female who is status post I&D of an abscess in the left breast on 10-12-20. She did well until recently when the area of the skin closed and she had increased erythema and swelling of the region. She was seen yesterday in the office and scheduled for an ultrasound today. However in the interim the area open spontaneously and drained. The ultrasound revealed an area of phlegmon but nothing to drain. Was recommended that the prior I&D site the opened again and the area be irrigated and packed. Patient understood the risk and benefits of procedure and wished to proceed. Following obtaining consent the area of concern in the left breast was prepped using Betadine. 3 mL of 1% lidocaine were used to anesthetize the area of concern. Incision was made in the prior incision site. The area of prior abscess was opened. There is some minimal serous drainage but no purulent drainage. The area was well irrigated using saline solution. Following this the area was packed. The dimensions of the defect were 4 cm lateral, 3.5 cm medial, 1 cm superior, and 2.5 cm inferior. The depth was approximately 2 cm. The patient tolerated the procedure in stable condition. The patient will follow-up next week. If she notes any increased erythema pain or concerned she will present to the emergency department. CC: Dr Aguilar
== END | disposition home or self-care (01) ==
LOC: WWCWWP 16:06
PROVIDERS: ATTEND Surgery
DX: N61.1 Abscess of the breast and nipple (principal)
CPT/HCPCS: 87070; 87075; 87205

== ENCOUNTER → 2020-11-14 | Outpatient (CLI) | payer MEDICARE, OTHER ==
--- NOTE | 2020-11-14 08:28 | P.PN ---
Progress Note - Text Progress Note Date: 11/14/20 The patient is a 50-year-old white female who is status post I&D of an abscess in the left breast on 10-12-20. She did well until recently when the area of the skin closed and she had increased erythema and swelling of the region. She was seen last week in the office and scheduled for an ultrasound. However in the interim the area open spontaneously and drained. The ultrasound revealed an area of phlegmon but nothing to drain. It was recommended that the prior I&D site the opened again and the area be irrigated and packed. Patient understood the risk and benefits of procedure and wished to proceed. This was performed on Friday. The patient at this time is doing well. The area of erythema has markedly decreased. She continues to have some minimal drainage. She is on Bactrim at this time. Gram stain no organisms seen. Anaerobic cultures preliminary. Aerobic cultures no growth. There is nothing on today's examination which would warrant interventional incision and drainage in the operating room. The patient will continue present management. Patient will follow-up with Dr. Chand on . Continue present therapy.
== END | disposition home or self-care (01) ==
LOC: WWCWWP 08:03
PROVIDERS: ATTEND Surgery
DX: Z53.9 Procedure and treatment not carried out, unspecified reason (principal)

== ENCOUNTER 2022-07-08 15:33 | Emergency (ER) | payer MEDICARE, OTHER ==
[2022-07-08 15:47] VITALS: BP 110/78; TEMP 97.9
[2022-07-08] MEDS ORDERED: LIDOCAINE 1% INJ 10MG/ML (30 ML VIAL-PF) SQ ONE (17:53)
[2022-07-08 18:31] LABS: Basophils % (A) 0 %; Eosinophils # (A) 0.3 k/uL (0-0.7); Eosinophils % (A) 3 %; HCT 45.5 % (34.0-46.0); HGB 14.8 gm/dL (11.4-16.0); Lymphocytes # (A) 1.9 k/uL (1.0-4.8); Lymphocytes % (A) 17 %; MCH 29.5 pg (25.0-35.0); MCHC 32.4 g/dL (31.0-37.0); MCV 90.9 fL (80.0-100.0); Mean Platelet Volume 7.5; Monocytes # (A) 0.8 k/uL (0-1.0); Monocytes % (A) 7 %; Neutrophils # (A) 8.3 k/uL (1.3-7.7); Neutrophils % (A) 72 %; Platelet Count 353 k/uL (150-450); RDW 14.3 % (11.5-15.5); WBC 11.5 k/uL (3.8-10.6)
[2022-07-08 18:40] LABS: ALT 16 U/L (4-34); African American GFR (CKD) >90 (>60 ml/min/1.73 sqM); Anion Gap 7 mmol/L; Blood Urea Nitrogen 13 mg/dL (7-17); Calcium 9.5 mg/dL (8.4-10.2); Carbon Dioxide 24 mmol/L (22-30); Chloride 104 mmol/L (98-107); Glucose 93 mg/dL (74-99); Non-African American GFR(CKD) 89 (>60 ml/min/1.73 sqM); Sodium 135 mmol/L (137-145)
[2022-07-08 18:45] LABS: AST 29 U/L (14-36); Albumin 4.5 g/dL (3.5-5.0); Alkaline Phosphatase 46 U/L (38-126); Potassium 5.4 mmol/L (3.5-5.1); Total Protein 7.8 g/dL (6.3-8.2)
--- NOTE | 2022-07-08 19:39 | ED ---
General Adult HPI - General Chief complaint: Skin/Abscess/Foreign Body Stated complaint: infection L breast Time Seen by Provider: 07/08/22 17:37 Source: patient, RN notes reviewed Mode of arrival: ambulatory Limitations: no limitations - History of Present Illness Initial comments: 51-year-old female with no significant past medical history presents to the emergency department with a chief complaint of left breast abscess. Patient reports she noticed the abscess 3 days ago however has progressively worse with migrating erythema to the entire breast area. She denies any fever, chills, chest pain, shortness of breath, palpitations. She has had this before where they performed a needle aspiration. - Related Data Home Medications Medication Instructions Recorded Confirmed cloNIDine HCL [Catapres] 0.1 mg PO BID 05/07/17 11/10/20 Butalb/Acetaminophen/Caffeine 1 - 2 cap PO Q4HR PRN 11/09/20 11/10/20 [Fioricet 50-300-40 mg Capsule] Sulfamethoxazole/Trimethoprim 1 each PO BID 11/10/20 11/10/20 [Bactrim DS 800-160 mg] Previous Rx's Medication Instructions Recorded amLODIPine [Norvasc] 10 mg PO DAILY #30 tab 05/12/17 Sulfamethox-Tmp 800-160Mg [Bactrim 1 each PO Q12HR #20 tab 07/08/22 Ds] Allergies Allergy/AdvReac Type Severity Reaction Status Date / Time Penicillins Allergy Anaphylaxis Verified 07/08/22 15:47 Review of Systems ROS Statement: Those systems with pertinent positive or pertinent negative responses have been documented in the HPI. ROS Other: All systems not noted in ROS Statement are negative. Past Medical History Past Medical History: Asthma, Hypertension Additional Past Medical History / Comment(s): Carpal Tunnel, Neuropathy Pain, Kidney Stone History of Any Multi-Drug Resistant Organisms: None Reported Past Surgical History: Cholecystectomy Additional Past Surgical History / Comment(s): Right ureteral stent insertion, right ESWL, right knee cartilage shaved. Left breast abscess surgery September 2020, right breast abscess drainage 2018 and roughly 2001 Past Anesthesia/Blood Transfusion Reactions: No Reported Reaction Additional Past Anesthesia/Blood Transfusion Reaction / Comment(s): ASPIRATED IN 2000 DURING GALLBLADDER SURGERY Past Psychological History: Anxiety Smoking Status: Current every day smoker Past Alcohol Use History: None Reported Past Drug Use History: Marijuana - Past Family History Mother Family Medical History: Cancer, Coronary Artery Disease (CAD) Additional Family Medical History / Comment(s): uterine,bipolar Father Family Medical History: Cancer General Exam Limitations: no limitations General appearance: alert, in no apparent distress Head exam: Present: atraumatic, normocephalic, normal inspection Eye exam: Present: normal appearance, PERRL, EOMI. Absent: scleral icterus, conjunctival injection, periorbital swelling ENT exam: Present: normal exam, mucous membranes moist Neck exam: Present: normal inspection. Absent: tenderness, meningismus, lymphadenopathy Respiratory exam: Present: normal lung sounds bilaterally. Absent: respiratory distress, wheezes, rales, rhonchi, stridor Cardiovascular Exam: Present: regular rate, normal rhythm, normal heart sounds. Absent: systolic murmur, diastolic murmur, rubs, gallop, clicks GI/Abdominal exam: Present: soft, normal bowel sounds. Absent: distended, tenderness, guarding, rebound, rigid Extremities exam: Present: normal inspection, full ROM, normal capillary refill. Absent: tenderness, pedal edema, joint swelling, calf tenderness Back exam: Present: normal inspection Neurological exam: Present: alert, oriented X3, CN II-XII intact Psychiatric exam: Present: normal affect, normal mood Skin exam: Present: warm, dry, intact, normal color, other (Left breast with small scab at the 9 o'clock position with area of fluctuance that is tender with surrounding erythema.). Absent: rash Course Vital Signs 07/08/22 07/08/22 15:44 20:10 Temperature 97.9 F Pulse Rate 100 87 Respiratory 20 18 Rate Blood Pressure 110/78 O2 Sat by Pulse 99 99 Oximetry Procedures - Joint Aspiration/Injection Side of Body: left (Past) Ultrasound Guidance: Yes Skin Prep: Chlorhexidine Local Anesthesia Used: Lidocaine 1% Amount of Anesthesia Used (mLs): 3 Needle Size Used: 22G Syringe Size Used: 10cc Fluid Obtained: purulent Total Fluid Obtained (mls): 4 Patient Tolerated Procedure: well, no complications Complications: none Medical Decision Making - Medical Decision Making Was pt. sent in by a medical professional or institution (, PA, DEVELOPMENT GEOLOGIST, urgent care, hospital, or residential...) When possible be specific @ -[No] Did you speak to anyone other than the patient for history (EMS, parent, family, police, friend...)? What history was obtained from this source @ -[No] Did you review nursing and triage notes (agree or disagree)? Why? @ -[I reviewed and agree with nursing and triage notes] Were old charts reviewed (outside hosp., previous admission, EMS record, old EKG, old radiological studies, urgent care reports/EKG's, residential records)? Report findings @ -[No old charts were reviewed] Differential Diagnosis (chest pain, altered mental status, abdominal pain women, abdominal pain men, vaginal bleeding, weakness, fever, dyspnea, syncope, headache, dizziness, GI bleed, back pain, seizure, CVA, palpatations, mental health, musculoskeletal)? @ -[not applicable] EKG interpreted by me (3pts min.). @ -[As above] X-rays interpreted by me (1pt min.). @ -[None done] CT interpreted by me (1pt min.). @ -[None done] U/S interpreted by me (1pt. min.). @ -[None done] What testing was considered but not performed or refused? (CT, X-rays, U/S, labs)? Why? @ -[None] What meds were considered but not given or refused? Why? @ -[None] Did you discuss the management of the patient with other professionals (professionals i.e. , PA, DEVELOPMENT GEOLOGIST, lab, RT, psych nurse, social media community manager, filler picker, teacher, media liaison officer, business case analyst)? Give summary @ -[No] Was smoking cessation discussed for >3mins.? @ -[No] Was critical care preformed (if so, how long)? @ -[No] Were there social determinants of health that impacted care today? How? (Homelessness, low income, unemployed, alcoholism, drug addiction, transportation, low edu. Level, literacy, decrease access to med. care, group home, rehab)? @ -[No] Was there de-escalation of care discussed even if they declined (Discuss DNR or withdrawal of care, Hospice)? DNR status @ -[No] What co-morbidities impacted this encounter? (DM, HTN, Smoking, COPD, CAD, Cancer, CVA, ARF, Chemo, Hep., AIDS, mental health diagnosis, sleep apnea, morbid obesity)? @ -[None] Was patient admitted / discharged? Hospital course, mention meds given and route, prescriptions, significant lab abnormalities, going to OR and other [facility] info. @ -Discharged. This is a 51-year-old female who presents to the emergency department with breast abscess. Patient had a thorough history and physical exam performed heart rate regular rate and rhythm patient remains afebrile. Breast is with abscess to the 9 o'clock position. Patient had a needle aspiration procedure performed approximately 4 mL of purulent discharge was removed. Patient was started on Bactrim. WBC count 11.2. I discussed the results in detail with the patient verbalized understanding and all questions were addressed. Patient was discharged in stable condition. Return precautions were discussed at length. She was strongly encouraged to follow up with PCP in 1-2 days. Case discussed with Dr. Salcido who agrees with plan of care. Undiagnosed new problem with uncertain prognosis? @ -[No] Drug Therapy requiring intensive monitoring for toxicity (Heparin, Nitro, Insul in, Cardizem)? @ -[No] Were any procedures done? @ -[No] Diagnosis/symptom? @ -left breast abscess Acute, or Chronic, or Acute on Chronic? @ -[acute Uncomplicated (without systemic symptoms) or Complicated (systemic symptoms)? @ -[uncomplicated Side effects of treatment? @ -[No] Exacerbation, Progression, or Severe Exacerbation? @ -[No] Poses a threat to life or bodily function? How? (Chest pain, [place], [place], pneumonia, PE, COPD, DKA, ARF, appy, cholecystitis, CVA, Diverticulitis, Homicidal, Suicidal, threat to staff... and all critical care pts) @ low likelihood - Lab Data Result diagrams: 07/08/22 18:20 07/08/22 18:20 Lab Results 07/08/22 07/08/22 Range/Units 18:20 18:20 WBC 11.5 H (3.8-10.6) k/uL RBC 5.00 (3.80-5.40) m/uL Hgb 14.8 (11.4-16.0) gm/dL Hct 45.5 (34.0-46.0) % MCV 90.9 (80.0-100.0) fL MCH 29.5 (25.0-35.0) pg MCHC 32.4 (31.0-37.0) g/dL RDW 14.3 (11.5-15.5) % Plt Count 353 (150-450) k/uL MPV 7.5 Neutrophils % 72 % Lymphocytes % 17 % Monocytes % 7 % Eosinophils % 3 % Basophils % 0 % Neutrophils # 8.3 H (1.3-7.7) k/uL Lymphocytes # 1.9 (1.0-4.8) k/uL Monocytes # 0.8 (0-1.0) k/uL Eosinophils # 0.3 (0-0.7) k/uL Basophils # 0.0 (0-0.2) k/uL Sodium 135 L (137-145) mmol/L Potassium 5.4 H (3.5-5.1) mmol/L Chloride 104 (98-107) mmol/L Carbon Dioxide 24 (22-30) mmol/L Anion Gap 7 mmol/L BUN 13 (7-17) mg/dL Creatinine 0.79 (0.52-1.04) mg/dL Est GFR (CKD-EPI)AfAm >90 (>60 ml/min/1.73 sqM) Est GFR (CKD-EPI)NonAf 89 (>60 ml/min/1.73 sqM) Glucose 93 (74-99) mg/dL Calcium 9.5 (8.4-10.2) mg/dL Total Bilirubin 1.0 (0.2-1.3) mg/dL AST 29 (14-36) U/L ALT 16 (4-34) U/L Alkaline Phosphatase 46 (38-126) U/L Total Protein 7.8 (6.3-8.2) g/dL Albumin 4.5 (3.5-5.0) g/dL Disposition Clinical Impression: Left breast abscess, Cellulitis Disposition: HOME SELF-CARE Condition: Stable Instructions (If sedation given, give patient instructions): Abscess (ED) Additional Instructions: Please return to the emergency department if symptoms worsen or persist Prescriptions: Sulfamethox-Tmp 800-160Mg [Bactrim Ds] 1 each PO Q12HR #20 tab Is patient prescribed a controlled substance at d/c from ED?: No Referrals: Pepito Aguilar MD [Primary Care Provider] - 1-2 days Time of Disposition: 19:39
[2022-07-08 20:12] VITALS: PULSE 87; RESP 18
== END 2022-07-08 20:12 | disposition home or self-care (01) ==
LOC: EC 15:33
DX: N61.1 Abscess of the breast and nipple (principal); I10 Essential (primary) hypertension; J45.909 Unspecified asthma, uncomplicated; F41.9 Anxiety disorder, unspecified; F17.200 Nicotine dependence, unspecified, uncomplicated; F12.90 Cannabis use, unspecified, uncomplicated; Z79.899 Other long term (current) drug therapy; Z88.0 Allergy status to penicillin; Z90.49 Acquired absence of other specified parts of digestive tract
CPT/HCPCS: 36415; 80053; 85025; 87075; 99283; 10160; J2001; 87070; 87205

== ENCOUNTER 2024-04-12 15:48 | Inpatient (IN) | payer MEDICARE, OTHER ==
--- NOTE | 2024-04-12 16:31 | ED ---
SOB HPI - General Chief Complaint: Shortness of Breath Stated Complaint: SOB Time Seen by Provider: 04/12/24 16:14 Source: patient, RN notes reviewed, old records reviewed Mode of arrival: ambulatory Limitations: no limitations - History of Present Illness Initial Comments: This is a 53-year-old female she presents today for evaluation of severe shortne ss of breath patient has increasing wheezing shortness of breath even with breathing treatments at home shortness of breath is increased the last few days no help with breathing treatments at home no travel or sick contacts no current chest pain, no prior recent hospital admissions for breathing issues MD Complaint: shortness of breath, cough, "asthma attack", anxiety -: days(s) Severity: moderate Severity scale (1-10): 7 Quality: aching Consistency: constant Improves With: rest Worsens With: exertion Known History Of: COPD, asthma, other (Hypertension) Context: recent URI, anxiety, recent illness Associated Symptoms: pain with inspiration, cough, sputum production Treatments Prior to Arrival: none - Related Data Home Medications Medication Instructions Recorded Confirmed cloNIDine HCL [Catapres] 0.1 mg PO BID 05/07/17 11/10/20 Butalb/Acetaminophen/Caffeine 1 - 2 cap PO Q4HR PRN 11/09/20 11/10/20 [Fioricet 50-300-40 mg Capsule] Sulfamethoxazole/Trimethoprim 1 each PO BID 11/10/20 11/10/20 [Bactrim DS 800-160 mg] Previous Rx's Medication Instructions Recorded amLODIPine [Norvasc] 10 mg PO DAILY #30 tab 05/12/17 Sulfamethox-Tmp 800-160Mg [Bactrim 1 each PO Q12HR #20 tab 07/08/22 Ds] Allergies Allergy/AdvReac Type Severity Reaction Status Date / Time Penicillins Allergy Anaphylaxis Verified 04/12/24 16:04 Review of Systems ROS Statement: Those systems with pertinent positive or pertinent negative responses have been documented in the HPI. ROS Other: All systems not noted in ROS Statement are negative. Past Medical History Past Medical History: Asthma, Hypertension Additional Past Medical History / Comment(s): Carpal Tunnel, Neuropathy Pain, Kidney Stone History of Any Multi-Drug Resistant Organisms: None Reported Past Surgical History: Cholecystectomy Additional Past Surgical History / Comment(s): Right ureteral stent insertion, right ESWL, right knee cartilage shaved. Left breast abscess surgery September 2020, right breast abscess drainage x2, 2018 and roughly 2002 Past Anesthesia/Blood Transfusion Reactions: No Reported Reaction Additional Past Anesthesia/Blood Transfusion Reaction / Comment(s): ASPIRATED IN 2000 DURING GALLBLADDER SURGERY Past Psychological History: Anxiety Smoking Status: Current every day smoker Past Alcohol Use History: None Reported Past Drug Use History: Marijuana - Past Family History Mother Family Medical History: Cancer, Coronary Artery Disease (CAD) Additional Family Medical History / Comment(s): uterine,bipolar Father Family Medical History: Cancer General Exam Limitations: no limitations General appearance: alert, in no apparent distress Head exam: Present: atraumatic, normocephalic, normal inspection Eye exam: Present: normal appearance, PERRL, EOMI. Absent: scleral icterus, conjunctival injection, periorbital swelling ENT exam: Present: normal exam, mucous membranes moist Neck exam: Present: normal inspection. Absent: tenderness, meningismus, lymphadenopathy Respiratory exam: Present: normal lung sounds bilaterally. Absent: respiratory distress, wheezes, rales, rhonchi, stridor Cardiovascular Exam: Present: regular rate, normal rhythm, normal heart sounds. Absent: systolic murmur, diastolic murmur, rubs, gallop, clicks GI/Abdominal exam: Present: soft, normal bowel sounds. Absent: distended, tenderness, guarding, rebound, rigid Extremities exam: Present: normal inspection, full ROM, normal capillary refill. Absent: tenderness, pedal edema, joint swelling, calf tenderness Back exam: Present: normal inspection Neurological exam: Present: alert, oriented X3, CN II-XII intact Psychiatric exam: Present: normal affect, normal mood Skin exam: Present: warm, dry, intact, normal color. Absent: rash Course Vital Signs 04/12/24 04/12/24 04/12/24 16:00 17:12 17:25 Temperature 98.1 F Pulse Rate 115 H 89 91 Respiratory 22 Rate Blood Pressure 169/106 O2 Sat by Pulse 96 Oximetry - Reevaluation(s) Reevaluation #1: 04/12/24 16:48 Medical records reviewed Reevaluation #2: 04/12/24 18:23 Patient has minimal improvement here in the ER Reevaluation #3: 04/12/24 18:23 Patient informed of results and questions answered Reevaluation #4: Was pt. sent in by a medical professional or institution (DIONNA Hernandez, BORING MILL SET UP OPERATOR, urgent care, hospital, or long term...) When possible be specific @ -no Did you speak to anyone other than the patient for history (EMS, parent, family, police, friend...)? What history was obtained from this source @ -no Did you review nursing and triage notes (agree or disagree)? Why? @ -agree Are old charts reviewed (outside hosp., previous admission, EMS record, old EKG, old radiological studies, urgent care reports/EKG's, long term records)? Report findings @ -yes Differential Diagnosis (chest pain, altered mental status, abdominal pain women, abdominal pain men, vaginal bleeding, weakness, fever, dyspnea, syncope, hea dache, dizziness, GI bleed, back pain, seizure, CVA, palpatations, mental health, musculoskeletal)? @ -prior EKG interpreted by me (3pts min.). @ -yes X-rays interpreted by me (1pt min.). @ -yes negative for acute disease CT interpreted by me (1pt min.). @ -no U/S interpreted by me (1pt. min.). @ -no What testing was considered but not performed or refused? (CT, X-rays, U/S, labs)? Why? @ -none What meds were considered but not given or refused? Why? @ -none Did you discuss the management of the patient with other professionals (professionals i.e. DIONNA Hernandez, BORING MILL SET UP OPERATOR, lab, RT, psych nurse, rn social work, buyer agent, teacher, aviation tactical readiness officer, patient case coordinator)? Give summary @ -no Was smoking cessation discussed for >3mins.? @ -no Was critical care preformed (if so, how long)? @ -no Were there social determinants of health that impacted care today? How? (Homelessness, low income, unemployed, alcoholism, drug addiction, transportation, low edu. Level, literacy, decrease access to med. care, skilled nursing, rehab)? @ -none Was there de-escalation of care discussed even if they declined (Discuss DNR or withdrawal of care, Hospice)? DNR status @ -no What co-morbidities impacted this encounter? (DM, HTN, Smoking, COPD, CAD, Cancer, CVA, ARF, Chemo, Hep., AIDS, mental health diagnosis, sleep apnea, mo rbid obesity)? @ -none Was patient admitted / discharged? Hospital course, mention meds given and r oute, prescriptions, significant lab abnormalities, going to OR and other pertinent info. @ - Undiagnosed new problem with uncertain prognosis? @ -no Drug Therapy requiring intensive monitoring for toxicity (Heparin, Nitro, Insulin, Cardizem)? @ -no Were any procedures done? @ -no Diagnosis/symptom? @ - Acute, or Chronic, or Acute on Chronic? @ -Acute Uncomplicated (without systemic symptoms) or Complicated (systemic symptoms)? @ -Complicated Side effects of treatment? @ -no Exacerbation, Progression, or Severe Exacerbation? @ -exacerbation Poses a threat to life or bodily function? How? (Chest pain, [place], [place], pneumonia, PE, COPD, DKA, ARF, appy, cholecystitis, CVA, Diverticulitis, Homicidal, Suicidal, threat to staff... and all critical care pts) @ -yes Reevaluation #5: Differential Dyspnea: Coronary syndrome, arrhythmia, tamponade, asthma, COPD, pulmonary embolism, pneumonia, pneumothorax, pulmonary effusion, anaphylaxis, diabetic ketoacidosis, flailed chest, pulmonary contusion, diaphragmatic rupture, anemia, neuromuscular, this is not meant to be an all-inclusive list. - Consultations Consultation #1: Spoke with [facility] who agrees to admit this patient Medical Decision Making - Medical Decision Making 53 female to the ER for evaluation of severe shortness of breath. Patient has significant shortness of breath COPD pneumonia on x-ray. Patient will be admitted for breathing treatments and supportive care pulmonology evaluation as she does not have a developmental education instructor - Lab Data Result diagrams: 04/12/24 16:35 04/12/24 16:35 Lab Results 04/12/24 04/12/24 04/12/24 Range/Units 16:35 16:35 16:35 WBC 9.8 (3.8-10.6) k/uL RBC 5.60 H (3.80-5.40) m/uL Hgb 16.6 H (11.4-16.0) gm/dL Hct 50.5 H (34.0-46.0) % MCV 90.2 (80.0-100.0) fL MCH 29.6 (25.0-35.0) pg MCHC 32.9 (31.0-37.0) g/dL RDW 14.0 (11.5-15.5) % Plt Count 241 (150-450) k/uL MPV 7.8 Neutrophils % 67 % Lymphocytes % 19 % Monocytes % 10 % Eosinophils % 0 % Basophils % 1 % Neutrophils # 6.6 (1.3-7.7) k/uL Lymphocytes # 1.9 (1.0-4.8) k/uL Monocytes # 1.0 (0-1.0) k/uL Eosinophils # 0.0 (0-0.7) k/uL Basophils # 0.1 (0-0.2) k/uL PT 11.0 (10.0-12.5) sec INR 1.0 (<1.2) APTT 25.9 (22.0-30.0) sec D-Dimer 0.76 H (<0.60) mg/L FEU Sodium 140 (137-145) mmol/L Potassium 4.2 (3.5-5.1) mmol/L Chloride 103 (98-107) mmol/L Carbon Dioxide 21 L (22-30) mmol/L Anion Gap 16 mmol/L BUN 11 (7-17) mg/dL Creatinine 0.85 (0.52-1.04) mg/dL Est GFR (CKD-EPI)AfAm >90 (>60 ml/min/1.73 sqM) Est GFR (CKD-EPI)NonAf 80 (>60 ml/min/1.73 sqM) Glucose 101 H (74-99) mg/dL Plasma Lactic Acid Benedict (0.7-2.0) mmol/L Calcium 9.7 (8.4-10.2) mg/dL Magnesium 2.1 (1.6-2.3) mg/dL Total Bilirubin 0.5 (0.2-1.3) mg/dL AST 25 (14-36) U/L ALT 16 (4-34) U/L Alkaline Phosphatase 82 (38-126) U/L Troponin I (0.000-0.034) ng/mL NT-Pro-B Natriuret Pep 467 pg/mL Total Protein 7.8 (6.3-8.2) g/dL Albumin 4.8 (3.5-5.0) g/dL 01/27/25 01/27/25 Range/Units 16:35 16:35 WBC (3.8-10.6) k/uL RBC (3.80-5.40) m/uL Hgb (11.4-16.0) gm/dL Hct (34.0-46.0) % MCV (80.0-100.0) fL MCH (25.0-35.0) pg MCHC (31.0-37.0) g/dL RDW (11.5-15.5) % Plt Count (150-450) k/uL MPV Neutrophils % % Lymphocytes % % Monocytes % % Eosinophils % % Basophils % % Neutrophils # (1.3-7.7) k/uL Lymphocytes # (1.0-4.8) k/uL Monocytes # (0-1.0) k/uL Eosinophils # (0-0.7) k/uL Basophils # (0-0.2) k/uL PT (10.0-12.5) sec INR (<1.2) APTT (22.0-30.0) sec D-Dimer (<0.60) mg/L FEU Sodium (137-145) mmol/L Potassium (3.5-5.1) mmol/L Chloride (98-107) mmol/L Carbon Dioxide (22-30) mmol/L Anion Gap mmol/L BUN (7-17) mg/dL Creatinine (0.52-1.04) mg/dL Est GFR (CKD-EPI)AfAm (>60 ml/min/1.73 sqM) Est GFR (CKD-EPI)NonAf (>60 ml/min/1.73 sqM) Glucose (74-99) mg/dL Plasma Lactic Acid Benedict 1.2 (0.7-2.0) mmol/L Calcium (8.4-10.2) mg/dL Magnesium (1.6-2.3) mg/dL Total Bilirubin (0.2-1.3) mg/dL AST (14-36) U/L ALT (4-34) U/L Alkaline Phosphatase (38-126) U/L Troponin I <0.012 (0.000-0.034) ng/mL NT-Pro-B Natriuret Pep pg/mL Total Protein (6.3-8.2) g/dL Albumin (3.5-5.0) g/dL - EKG Data -: EKG Interpreted by Me (EKG is sinus tachycardia 112 NV 168 QRS 89 QTc 459) - Radiology Data Radiology results: report reviewed (Chest x-ray CT chest does show pneumonia with bronchitis changes), image reviewed Disposition Clinical Impression: Acute exacerbation of chronic obstructive pulmonary disease, Asthma with acute exacerbation, Hypertension, Community acquired pneumonia Disposition: ADMITTED IP TO THIS HOSP Condition: Serious Is patient prescribed a controlled substance at d/c from ED?: No Referrals: None,Stated [Primary Care Provider] - 1-2 days Time of Disposition: 18:30
[2024-04-12 16:46] LABS: Basophils # (A) 0.1 k/uL (0-0.2); Basophils % (A) 1 %; Eosinophils % (A) 0 %; HCT 50.5 % (34.0-46.0); HGB 16.6 gm/dL (11.4-16.0); Lymphocytes # (A) 1.9 k/uL (1.0-4.8); Lymphocytes % (A) 19 %; MCH 29.6 pg (25.0-35.0); MCHC 32.9 g/dL (31.0-37.0); MCV 90.2 fL (80.0-100.0); Mean Platelet Volume 7.8; Monocytes % (A) 10 %; Neutrophils # (A) 6.6 k/uL (1.3-7.7); Neutrophils % (A) 67 %; Platelet Count 241 k/uL (150-450); WBC 9.8 k/uL (3.8-10.6)
[2024-04-12] MEDS: methylPREDNISolone SOD SUCCI 125 MG/2 ML VIAL IV STA (16:50)
[2024-04-12] MEDS: ENALAPRILAT 1.25 MG/ML 1 ML VIAL IVP STA (16:51)
[2024-04-12] MEDS: MORPHINE SULFATE 2 MG/ML SYRINGE IVP STA (16:53)
[2024-04-12] MEDS: SODIUM CHLORIDE 0.9% 1,000 ML IV STA (16:54)
[2024-04-12 16:59] LABS: Partial Thromboplastin Time 25.9 sec (22.0-30.0)
[2024-04-12] MEDS: ONDANSETRON 4 MG/2 ML VIAL IVP STA (17:00)
--- NOTE | 2024-04-12 17:02 | XR ---
EXAMINATION TYPE: XR chest 1V portable DATE OF EXAM: 04/12/2024 4:56 PM COMPARISON: None TECHNIQUE: XR chest 1V portable Portable AP radiograph of the chest. CLINICAL INDICATION:Female, 53 years old with history of sob; FINDINGS: Lungs/Pleura: There is no evidence of pleural effusion, focal consolidation, or pneumothorax. Pulmonary vascularity: Unremarkable. Heart/mediastinum: Cardiomediastinal silhouette is unremarkable. Musculoskeletal: No acute osseous pathology. IMPRESSION: No acute cardiopulmonary disease/process. [facility], , 04/12/2024 5:00 PM
[2024-04-12 17:03] LABS: ALT 16 U/L (4-34); AST 25 U/L (14-36); African American GFR (CKD) >90 (>60 ml/min/1.73 sqM); Albumin 4.8 g/dL (3.5-5.0); Alkaline Phosphatase 82 U/L (38-126); Anion Gap 16 mmol/L; Blood Urea Nitrogen 11 mg/dL (7-17); Calcium 9.7 mg/dL (8.4-10.2); Carbon Dioxide 21 mmol/L (22-30); Chloride 103 mmol/L (98-107); Glucose 101 mg/dL (74-99); Magnesium 2.1 mg/dL (1.6-2.3); Non-African American GFR(CKD) 80 (>60 ml/min/1.73 sqM); Potassium 4.2 mmol/L (3.5-5.1); Sodium 140 mmol/L (137-145); Total Bilirubin 0.5 mg/dL (0.2-1.3); Total Protein 7.8 g/dL (6.3-8.2)
[2024-04-12] MEDS: IPRATROPIUM 0.5 MG/2.5 ML NEBU INHALATION STA (17:10)
[2024-04-12] MEDS: ALBUTEROL NEBULIZED 2.5 MG/3 ML INHALATION STA (17:10)
[2024-04-12 17:12] LABS: NT-Pro-B-Type Natriuretic Pept 467 pg/mL
--- NOTE | 2024-04-12 18:15 | CT ---
EXAMINATION TYPE: CT angio chest DATE OF EXAM: 04/12/2024 6:07 PM COMPARISON: Chest radiograph from same day. CLINICAL INDICATION: Female, 53 years old with history of PE; SOB. CP. Suspected PE. TECHNIQUE/CONTRAST: CTA scan of the thorax is performed with IV Contrast, patient injected with 100 ml mL of Isovue 370, MIP images are created and reviewed these are created on a separate workstation.. CT DLP: 328.8 mGycm, Automated exposure control for dose reduction was used. FINDINGS: Lungs/Pleura: No evidence of focal consolidation, pleural effusion or pneumothorax. Few scattered mary undglass opacities in the upper lungs. Airway: Large airways are patent. Heart: Size within normal limits Vasculature: There is no evidence for a filling defect within the pulmonary vasculature to suggest [place] pulmonary embolism. The pulmonary artery is of normal size. Mediastinum: No gross evidence of adenopathy. Musculoskeletal: No acute osseous abnormalities Soft Tissues/lymph nodes: Unremarkable. Lower neck: No significant findings. Upper Abdomen: Simple appearing right hepatic cyst. Nonobstructing left 3 mm calculus. No right renal calculi. The gallbladder surgically absent. Fatty infiltration of the falciform ligament. IMPRESSION: 1. No evidence of pulmonary embolism. 2. Groundglass opacities in the upper lungs correlate for atypical pneumonia. 3. Nonobstructing left renal calculus. [facility], , 04/12/2024 6:13 PM
[2024-04-12] MEDS ORDERED: PNEUMONIA PROTOCOL UTILIZED 1 EACH MISC PO PRN (18:21)
[2024-04-12] MEDS: SODIUM CHLORIDE 0.9% 1,000 ML IV SCH (18:40)
[2024-04-12] MEDS: IPRATROPIUM-ALBUTEROL 3 ML NEB INHALATION STA (18:55)
[2024-04-12] MEDS: AZITHROMYCIN 500 MG in SODIUM CHLORIDE 0.9% 250 ML IVPB STA (18:56)
[2024-04-12] MEDS: ALBUTEROL NEBULIZED 2.5 MG/3 ML INHALATION SCH (19:53)
[2024-04-13 01:50] LABS: Influenza A Not Detected (Not Detectd); Influenza B Not Detected (Not Detectd); RSV Not Detected (Not Detectd)
--- NOTE | 2024-04-13 02:55 | P.CNPUL ---
History of Present Illness Consult date: 04/13/24 Requesting physician: Luis Ramos Reason for consult: COPD Chief complaint: Shortness of breath History of present illness: Patient is a 53-year-old female with past medical history significant for asthma/COPD, current ongoing tobacco dependence, hypertension. Currently does not have a primary care provider. Presents to the emergency department yesterday afternoon with a chief complaint of severe shortness of breath, chest tightness, and wheezing. Workup in the emergency department involved a chest x- ray which showed hyperinflation and coarsened interstitium, but unremarkable for any acute cardiopulmonary process. Did have an elevated D-dimer, which incited the CT angio protocol reports which did not show any filling defects consistent with pulmonary embolism. There was few groundglass opacities in the upper lung bansal. Nonobstructive left renal calculus incidentally noted. CBC: WBC count 9.8, hemoglobin 16.6, platelets 241. CMP: Sodium 140, potassium 4.2, chloride 103, serum bicarb 21, BUN 11, creatinine 0.85, glucose 101. Lactic 1.2. LFTs unremarkable. Troponin less than 0.012. NT proBNP not significantly elevated at 467. Viral screen was unremarkable for influenza A/B, RSV, COVID. Patient currently being evaluated in the general medical floor. Currently on 2 L/min nasal cannula, no acute respiratory distress. Endorses history of COPD and asthma. She has an as needed albuterol rescue inhaler, which she rarely needs unless sick. She denies any sick contacts. States that her shortness of breath started approximately 3 days ago. Associated dry cough with occasional clear mucus production. Denies any purulent sputum production, hemoptysis, fever/chills. States that her chest has been "tight". Denies any localized chest pain. Has been tolerating oral fluids and appetite has been well. Denies any nausea or vomiting or diarrhea. She does smoke approximately 1 pack/day, however, has not smoked a cigarette in 3 days. Current vital signs: Temperature 98.3 F, heart rate 73 bpm, blood pressure 144/75 mmHg, nontachypneic, on 2 L/min nasal cannula with a recorded SpO2 of 91%. Nontoxic appearance. Review of Systems Constitutional: Reports fatigue, Reports sweats, Denies chills, Denies fever, Denies poor appetite, Denies weakness, Denies weight gain, Denies weight loss Ears, nose, mouth and throat: Reports nasal congestion, Reports nasal discharge, Reports post-nasal drip, Denies headache, Denies sinus pain, Denies sinus pressure, Denies sore throat, Denies voice changes Cardiovascular: Denies chest pain, Denies leg edema, Denies lightheadedness, Denies orthopnea, Denies palpitations, Denies paroxysmal nocturnal dyspnea, Denies syncope Respiratory: Reports as per HPI Gastrointestinal: Reports as per HPI Genitourinary: Denies dysuria, Denies flank pain, Denies hematuria Musculoskeletal: Denies limitation of motion Integumentary: Denies rash Neurological: Denies seizures, Denies syncope Psychiatric: Denies anxiety, Denies depression Past Medical History Past Medical History: Asthma, Hypertension Additional Past Medical History / Comment(s): Carpal Tunnel, Neuropathy Pain, Kidney Stone History of Any Multi-Drug Resistant Organisms: None Reported Past Surgical History: Cholecystectomy Additional Past Surgical History / Comment(s): Right ureteral stent insertion, right ESWL, right knee cartilage shaved. Left breast abscess surgery September 2020, right breast abscess drainage x2, 2018 and roughly 2001 Past Anesthesia/Blood Transfusion Reactions: No Reported Reaction Additional Past Anesthesia/Blood Transfusion Reaction / Comment(s): ASPIRATED IN 2000 DURING GALLBLADDER SURGERY Past Psychological History: Anxiety Smoking Status: Current every day smoker Past Alcohol Use History: None Reported Additional Past Alcohol Use History / Comment(s): SMOKES 1 PPD SINCE AGE 15 Past Drug Use History: Marijuana Additional Drug Use History / Comment(s): USES MARIJUANA DAILY-INSTRUCTED TO REFRAIN FROM USE FOR AT LEAST 24 HOURS PROR TO PROCEDURE - Past Family History Mother Family Medical History: Cancer, Coronary Artery Disease (CAD) Additional Family Medical History / Comment(s): uterine,bipolar Father Family Medical History: Cancer Medications and Allergies Home Medications Medication Instructions Recorded Confirmed Type No Known Home Medications 04/12/24 04/12/24 History Allergies Allergy/AdvReac Type Severity Reaction Status Date / Time Penicillins Allergy Anaphylaxis Verified 04/12/24 18:55 Physical Exam Vitals: Vital Signs Temp Pulse Pulse Resp BP BP Pulse Ox 04/13/24 00:58 98.3 F 73 20 144/75 91 L 04/12/24 20:34 98.3 F 88 18 139/82 98 04/12/24 19:43 99.0 F 88 18 107/82 97 04/12/24 19:03 93 04/12/24 18:57 92 04/12/24 17:25 91 04/12/24 17:12 89 04/12/24 16:00 98.1 F 115 H 22 169/106 96 Intake and Output 04/12/24 04/12/24 04/13/24 14:59 22:59 06:59 Other: Voiding Method Toilet Weight 76.204 kg 76.204 kg GENERAL EXAM: Alert, 53-year-old white female, sitting up in bed, on 2 L/min nasal cannula,, comfortable in no apparent distress. HEAD: Normocephalic and atraumatic EYES: Normal reaction of pupils, equal size. NOSE: Clear with pink turbinates. THROAT: No erythema or exudates. NECK: No masses, no JVD. CHEST: No chest wall deformity. LUNGS: Equal air entry with few scattered rhonchi bilaterally and end expiratory wheezing heard posteriorly. On 2 L/min nasal cannula. No conversational dyspnea or accessory muscle use.. CVS: S1 and S2 normal with no audible murmur, regular rhythm. No extra heart sounds ABDOMEN: No hepatosplenomegaly, active bowel sounds, no guarding or rigidity. SPINE: No scoliosis or deformity SKIN: No rashes CENTRAL NERVOUS SYSTEM: No focal deficits, tone is normal in all 4 extremities. EXTREMITIES: There is no peripheral edema, clubbing, or cyanosis. Peripheral pulses are intact. Results - Laboratory Findings CBC and BMP: 04/12/24 16:35 04/12/24 16:35 PT/INR, D-dimer PT 11.0 sec (10.0-12.5) 04/12/24 16:35 INR 1.0 (<1.2) 04/12/24 16:35 D-Dimer 0.76 mg/L FEU (<0.60) H 04/12/24 16:35 Abnormal lab findings: Abnormal Labs 04/12/24 04/12/24 04/12/24 16:35 16:35 16:35 RBC 5.60 H Hgb 16.6 H Hct 50.5 H D-Dimer 0.76 H Carbon Dioxide 21 L Glucose 101 H - Diagnostic Findings Chest x-ray: image reviewed CT scan - chest: image reviewed Assessment and Plan Assessment: Suspect acute exacerbation of asthma/COPD Possible community-acquired/atypical pneumonia; chest CTA showing few subtle bilateral upper lobe groundglass opacities. Viral screen unremarkable for influenza A/B, RSV, COVID. Acute hypoxemic respiratory failure, 2 L/min nasal cannula Current ongoing tobacco dependence, with [id number] history Hypertension Nephrolithiasis, nonobstructive left renal calculus incidentally noted on chest CTA Plan: Continue supplemental oxygen to maintain oxygen saturation of 92% or greater Continue bronchodilators [id number] and IV Solu-Medrol Check procalcitonin level, and manage antibiotics accordingly Smoking cessation counseling performed greater than 3 minutes, patient refused nicotine patch We will continue to follow while inpatient I have personally seen and examined the patient, performed the documentation and the assessment and plan as written. Number of minutes spent on the visit:20 This is a joint evaluation that was done along with the nurse practitioner. The patient is a 53-year-old female patient with known history of COPD and smoking who presented with an acuity of exacerbation. She remains actively bronchospastic and wheezy and she is currently on a combination bronchodilators and steroids. Labs are all stable. The CT of the chest was done in the emergency and it shows no significant abnormalities. Some nonspecific minimal groundglass opacities in the upper lobes probably due to an atypical infection. She remains on a combination of Rocephin and Zithromax. Afebrile. Hemodynamically stable. Smoking cessation counseling was done. Will continue same management. Will continue to follow. Oxygenation is also stable and the patient is currently on 2 L of oxygen by nasal cannula with pulse ox of 95%. This evaluation was done more than 30 minutes. Time with Patient: Greater than 30
--- NOTE | 2024-04-13 07:41 | XR ---
EXAMINATION TYPE: XR chest 1V portable DATE OF EXAM: 04/13/2024 7:27 AM COMPARISON: Chest radiographs from 04/12/2024, CTA chest 04/12/2024 TECHNIQUE: XR chest 1V portable Portable AP radiograph of the chest. CLINICAL INDICATION:Female, 53 years old with history of pneumonia; FINDINGS: Lungs/Pleura: There is no evidence of pleural effusion, focal consolidation, or pneumothorax. Pulmonary vascularity: Unremarkable. Heart/mediastinum: Cardiomediastinal silhouette is unremarkable. Musculoskeletal: No acute osseous pathology. IMPRESSION: No acute cardiopulmonary disease/process. No significant change from prior exam. [facility], , 04/13/2024 7:38 AM
[2024-04-13] MEDS: methylPREDNISolone SOD SUCCI 40 MG/ML 1 ML VIAL IV SCH (07:57)
[2024-04-13] MEDS: FAMOTIDINE 20 MG TAB PO SCH (07:58)
[2024-04-13] MEDS: METOPROLOL TARTRATE 25 MG TAB PO SCH (08:24)
[2024-04-13] MEDS: amLODIPine 5 MG TAB PO SCH (08:28)
[2024-04-13] MEDS: hydrALAZINE HCL 20 MG/ML 1 ML VIAL IVP PRN (08:28)
[2024-04-13] MEDS: IPRATROPIUM-ALBUTEROL 3 ML NEB INHALATION SCH (08:29)
[2024-04-13] MEDS: methylPREDNISolone SOD SUCCI 125 MG/2 ML VIAL IV SCH (12:18)
--- NOTE | 2024-04-13 13:56 | P.HPIM ---
History of Present Illness This is a pleasant 53 years old female with past medical history of COPD and nicotine dependence. Presents because of worsening dyspnea with cough and phlegm over the last 2 days with no significant chest pain. She denies any specific GI/ symptoms. No weakness or tingling She has some mild o headache dizziness. Patient smokes about 1 pack/day and she was counseled to quit and she agrees but she declines nicotine patch. She uses marijuana as edibles for her chronic pain but she denies alcohol. Patient afebrile, blood pressure stable She has unremarkable CBC, BMP, LFT, INR, troponin Influenza A and type B, RSV, SARS (coronavirus) are undetected D-dimer was slightly elevated 0.76. CTA of the chest is negative for PE but showing bilateral upper groundglass opacity suspicious for atypical pneumonia and nonobstructive left renal calculus EKG showing sinus tachycardia at [address]-T changes Chest x-ray showing no acute cardiopulmonary process Review of Systems Review of systems CONSTITUTIONAL: No fever, no malaise, no fatigue. HEENT: No recent visual problems or hearing problems. Denied any sore throat. CARDIOVASCULAR: No orthopnea, PND, no palpitations, no syncope. PULMONARY: No chest wall tenderness, no hemoptysis. GASTROINTESTINAL: No diarrhea, no nausea, no vomiting, no abdominal pain. Normoactive bowel sounds. NEUROLOGICAL: No headaches, no weakness, no numbness. HEMATOLOGICAL: Denies any bleeding or petechiae. GENITOURINARY: Denies any burning micturition, frequency, or urgency. MUSCULOSKELETAL/RHEUMATOLOGICAL: Denies any joint pain, swelling, or any muscle pain. ENDOCRINE: Denies any polyuria or polydipsia. Past Medical History Past Medical History: Asthma, Hypertension Additional Past Medical History / Comment(s): Carpal Tunnel, Neuropathy Pain, Kidney Stone History of Any Multi-Drug Resistant Organisms: None Reported Past Surgical History: Cholecystectomy Additional Past Surgical History / Comment(s): Right ureteral stent insertion, right ESWL, right knee cartilage shaved. Left breast abscess surgery September 2020, right breast abscess drainage 2018 and roughly 2001 Past Anesthesia/Blood Transfusion Reactions: No Reported Reaction Additional Past Anesthesia/Blood Transfusion Reaction / Comment(s): ASPIRATED IN 2000 DURING GALLBLADDER SURGERY Past Psychological History: Anxiety Smoking Status: Current every day smoker Past Alcohol Use History: None Reported Additional Past Alcohol Use History / Comment(s): SMOKES 1 PPD SINCE AGE 15 Past Drug Use History: Marijuana Additional Drug Use History / Comment(s): USES MARIJUANA DAILY-INSTRUCTED TO REFRAIN FROM USE FOR AT LEAST 24 HOURS PROR TO PROCEDURE - Past Family History Mother Family Medical History: Cancer, Coronary Artery Disease (CAD) Additional Family Medical History / Comment(s): uterine,bipolar Father Family Medical History: Cancer Medications and Allergies Home Medications Medication Instructions Recorded Confirmed Type No Known Home Medications 04/12/24 04/12/24 History Allergies Allergy/AdvReac Type Severity Reaction Status Date / Time Penicillins Allergy Anaphylaxis Verified 04/12/24 18:55 Physical Exam Vitals: Vital Signs Temp Pulse Pulse Resp BP BP Pulse Ox 04/13/24 12:10 80 04/13/24 11:59 80 04/13/24 08:40 90 04/13/24 08:31 95 04/13/24 08:29 86 04/13/24 07:12 97.8 F 67 18 190/90 94 L 04/13/24 00:58 98.3 F 73 20 144/75 91 L 04/12/24 20:34 98.3 F 88 18 139/82 98 04/12/24 19:43 99.0 F 88 18 107/82 97 04/12/24 19:03 93 04/12/24 18:57 92 04/12/24 17:25 91 04/12/24 17:12 89 04/12/24 16:00 98.1 F 115 H 22 169/106 96 Intake and Output 04/12/24 04/13/24 04/13/24 22:59 06:59 14:59 Intake Total 360 Balance 360 Intake: Oral 360 Other: Voiding Method Toilet Toilet # Voids 2 Weight 76.204 kg 76.204 kg Results CBC & Chem 7: 04/12/24 16:35 04/12/24 16:35 Labs: Abnormal Lab Results - Last 24 Hours (Table) 04/12/24 04/12/24 04/12/24 Range/Units 16:35 16:35 16:35 RBC 5.60 H (3.80-5.40) m/uL Hgb 16.6 H (11.4-16.0) gm/dL Hct 50.5 H (34.0-46.0) % D-Dimer 0.76 H (<0.60) mg/L FEU Carbon Dioxide 21 L (22-30) mmol/L Glucose 101 H (74-99) mg/dL Microbiology - Last 24 Hours (Table) 04/12/24 19:33 Gram Stain - Preliminary Sputum Thrombosis Risk Factor Assmnt - Choose All That Apply Any of the Below Risk Factors Present?: Yes Each Factor Represents 1 point: Abnormal pulmonary function (COPD), Age 41-60 years Other Risk Factors: No Other congenital or acquired thrombophilia - If yes, enter type in comment: No Thrombosis Risk Factor Assessment Total Risk Factor Score: 2 Thrombosis Risk Factor Assessment Level: Low Risk Assessment and Plan Assessment: Acute COPD exacerbation Acute hypoxic respiratory failure, mild Bilateral upper lobe groundglass opacities suspicious for atypical pneumonia Hypertension Nicotine dependence Plan: Continue with IV Solu-Medrol Continue with IV hydration Continue with antibiotics ceftriaxone and Zithromax Pulmonary team consult Labs and medication were reviewed.. Continue same treatment. Continue with symptomatic treatment. Resume home medication. Monitor labs and vitals. DVT and GI prophylaxis. Further recommendations as per clinical course of the patient DVT prophylaxis: Subcutaneous heparin GI Prophylaxis: Pepcid PT/OT: Pending Prognosis is guarded
[2024-04-13] MEDS: AZITHROMYCIN 500 MG in SODIUM CHLORIDE 0.9% 250 ML IVPB SCH (17:10)
[2024-04-13] MEDS: HEPARIN SODIUM,PORCINE 5,000 UNIT/ML 1 ML VIAL SQ SCH (20:56)
[2024-04-13] MEDS: ACETAMINOPHEN TAB 325 MG TAB PO PRN (21:32)
[2024-04-14 07:00] VITALS: RESP 18; TEMP 97.3
[2024-04-14] MEDS: BUTALB/APAP/CAFF 50-325-40MG TAB PO PRN (12:29)
[2024-04-14] MEDS: hydrALAZINE HCL 25 MG TAB PO STA ×2 (15:00→18:21)
[2024-04-14 16:32] VITALS: BP 180/96
[2024-04-14 16:39] VITALS: PULSE 75
--- NOTE | 2024-04-14 18:23 | P.PN ---
Subjective Progress Note Date: 04/14/24 Patient is a 53-year-old female with past medical history significant for asthma/COPD, current ongoing tobacco dependence, hypertension. Currently does not have a primary care provider. Presents to the emergency department yesterday afternoon with a chief complaint of severe shortness of breath, chest tightness, and wheezing. Workup in the emergency department involved a chest x- ray which showed hyperinflation and coarsened interstitium, but unremarkable for any acute cardiopulmonary process. Did have an elevated D-dimer, which incited the CT angio protocol reports which did not show any filling defects consistent with pulmonary embolism. There was few groundglass opacities in the upper lung bansal. Nonobstructive left renal calculus incidentally noted. CBC: WBC count 9.8, hemoglobin 16.6, platelets 241. CMP: Sodium 140, potassium 4.2, chloride 103, serum bicarb 21, BUN 11, creatinine 0.85, glucose 101. Lactic 1.2. LFTs unremarkable. Troponin less than 0.012. NT proBNP not significantly elevated at 467. Viral screen was unremarkable for influenza A/B, RSV, COVID. Patient currently being evaluated in the general medical floor. Currently on 2 L/min nasal cannula, no acute respiratory distress. Endorses history of COPD and asthma. She has an as needed albuterol rescue inhaler, which she rarely needs unless sick. She denies any sick contacts. States that her shortness of breath started approximately 3 days ago. Associated dry cough with occasional clear mucus production. Denies any purulent sputum production, hemoptysis, fever/chills. States that her chest has been "tight". Denies any localized chest pain. Has been tolerating oral fluids and appetite has been well. Denies any nausea or vomiting or diarrhea. She does smoke approximately 1 pack/day, however, has not smoked a cigarette in 3 days. Current vital signs: Temperature 98.3 F, heart rate 73 bpm, blood pressure 144/75 mmHg, nontachypneic, on 2 L/min nasal cannula with a recorded SpO2 of 91%. Nontoxic appearance. On 04/14/2024, the patient is being seen for a follow-up. Still bronchospastic and wheezy. Some improvement since yesterday although she is not completely recovered. No new complaints for now. Remains on DuoNeb updrafts. Remains on IV Rocephin and Zithromax and IV Solu-Medrol. Labs not obtained from today. Procalcitonin level is 0.08. Viral 4 Plex and Legionella urine antigen are all negative. Objective - Vital Signs Vital signs: Vital Signs Temp 97.3 F L 04/14/24 06:59 Pulse 68 04/14/24 09:11 Resp 18 04/14/24 06:59 BP 170/88 04/14/24 06:59 Pulse Ox 96 04/14/24 09:04 FiO2 Intake & Output 04/13/24 04/14/24 04/14/24 18:59 06:59 18:59 Other: Voiding Method Toilet Toilet Toilet # Voids 2 2 - Exam GENERAL EXAM: Alert, 53-year-old white female, sitting up in bed, on 2 L/min nasal cannula,, comfortable in no apparent distress. HEAD: Normocephalic and atraumatic EYES: Normal reaction of pupils, equal size. NOSE: Clear with pink turbinates. THROAT: No erythema or exudates. NECK: No masses, no JVD. CHEST: No chest wall deformity. LUNGS: Equal air entry with few scattered rhonchi bilaterally and end expiratory wheezing heard posteriorly. On 2 L/min nasal cannula. No conversational dyspnea or accessory muscle use.. CVS: S1 and S2 normal with no audible murmur, regular rhythm. No extra heart sounds ABDOMEN: No hepatosplenomegaly, active bowel sounds, no guarding or rigidity. SPINE: No scoliosis or deformity SKIN: No rashes CENTRAL NERVOUS SYSTEM: No focal deficits, tone is normal in all 4 extremities. EXTREMITIES: There is no peripheral edema, clubbing, or cyanosis. Peripheral pulses are intact. - Labs CBC & Chem 7: 04/12/24 16:35 04/12/24 16:35 Labs: Microbiology - Last 24 Hours (Table) 04/12/24 19:33 Gram Stain - Preliminary Sputum Sputum Culture - Preliminary 04/12/24 18:35 Blood Culture - Preliminary Blood Assessment and Plan Assessment: acute exacerbation of asthma/COPD Possible community-acquired/atypical pneumonia; chest CTA showing few subtle bilateral upper lobe groundglass opacities. Viral screen unremarkable for influenza A/B, RSV, COVID. Acute hypoxemic respiratory failure, 2 L/min nasal cannula Current ongoing tobacco dependence, with [id number] history Hypertension Nephrolithiasis, nonobstructive left renal calculus incidentally noted on chest CTA Plan: Clinically the patient is stable and patient is improving. Will continue same treatment for now. Titrate oxygen flow. Continue bronchodilators [id number] and IV Solu-Medrol Check procalcitonin level, and manage antibiotics accordingly Smoking cessation counseling performed greater than 3 minutes, patient refused nicotine patch Procalcitonin level is not elevated. We will continue to follow while inpatient
== END 2024-04-14 19:30 | disposition home or self-care (01) | DRG 190 ==
LOC: EC 15:48 → 4SSUR 18:22
PROVIDERS: ADMIT Hospitalist; ATTEND Hospitalist
DX: J44.1 Chronic obstructive pulmonary disease with (acute) exacerbation (principal); J96.01 Acute respiratory failure with hypoxia; J45.901 Unspecified asthma with (acute) exacerbation; I10 Essential (primary) hypertension; J44.0 Chronic obstructive pulmonary disease with (acute) lower respiratory infection; F17.210 Nicotine dependence, cigarettes, uncomplicated; F41.9 Anxiety disorder, unspecified; G89.29 Other chronic pain; Z71.6 Tobacco abuse counseling; N20.0 Calculus of kidney; Z82.49 Family history of ischemic heart disease and other diseases of the circulatory system; Z87.442 Personal history of urinary calculi; Z11.52 Encounter for screening for COVID-19; Z88.0 Allergy status to penicillin; Z90.49 Acquired absence of other specified parts of digestive tract
CPT/HCPCS: 36415; 71045; 71275; 80053; 83605; 83735; 83880; 84145; 84484; 85025; 85379; 85610; 85730; 87040; 87070; 87205; 87449; 87636; 93005; 94640; 94760; 96361; 96374; 96375; 99285